=== PATIENT | female | born 1950 | race Caucasian/White ===

== ENCOUNTER 2018-01-07 12:09 | Inpatient (IN) | payer MEDICARE ==
[2018-01-07] MEDS ORDERED: Ondansetron 4 MG Tab.DIS PO PRN (13:02)
[2018-01-07] MEDS ORDERED: Polyethylene Glycol 3350 Powder 17 GM Packet PO PRN (13:02)
[2018-01-07] MEDS ORDERED: Ondansetron 4 MG/2 ML SDV IV PRN (13:02)
[2018-01-07] MEDS ORDERED: Sodium Chloride 0.9% 10 ML Syringe FLUSH PRN (13:02)
--- NOTE | 2018-01-07 13:09 | PCM.HP ---
H&P History of Present Illness - General Date of Service: 01/07/18 Admit Problem/Dx: Admission Diagnosis/Problem Admission Diagnosis/Problem Hip fracture requiring operative repair Source of Information: Patient, Provider History Limitations: Reports: No Limitations - History of Present Illness Initial Comments - Free Text/Narative: Saba presented initially to the clinic with right hip pain. She had a fall 2 nights ago and landed on her right hip. She had immediate and severe pain but was able to tough it out for a couple of days. She reports mild to moderate achy pain at rest but has sharp severe pain in the right hip with any weightbearing activity. She has taken hydrocodone at home with some improvement. She has never had pain like this before. Pain is not getting any better. She was initially seen in the clinic and an x-ray confirmed a right hip fracture. The case was discussed with orthopedics and direct admission plan for surgical intervention tomorrow. She has been feeling well prior to the fall which resulted from her losing her balance. She does not endorse fevers, chills , cough, shortness of breath, abdominal pain or nausea. She has had previous surgeries and has not had difficulty with anesthesia but did have a pulmonary embolism postoperatively years ago. Functional status is limited by sciatic and lower back pain. On a good day she is able to walk several blocks without limitation but when her pain in her lower back bothers her she's only able to walk a block or 2. She has not had recent difficulties with exertional dyspnea or chest pain. Right Groin Pain Score (Numeric/FACES): 8 - Related Data Allergies/Adverse Reactions: Allergies Allergy/AdvReac Type Severity Reaction Status Date / Time Iodinated Contrast- Oral and Allergy Severe Difficulty Verified 01/07/18 12:32 IV Dye Breathing [Iodinated Contrast Media - IV Dye] latex Allergy Cannot Verified 07/31/13 14:59 Remember tramadol AdvReac Confusion Verified 01/07/18 12:42 Home Medications: Home Meds ALPRAZolam [Xanax] 0.25 mg PO TID 01/07/18 [History] Acetaminophen/HYDROcodone [[place] 325-5 MG] 1 tab PO Q6H 01/07/18 [History] Albuterol Sulfate [Proair Hfa] 2 inhalation IH Q4H PRN 01/07/18 [History] Aspirin [Halfprin] 81 mg PO DAILY 01/07/18 [History] Carisoprodol [Soma] 350 mg PO QID 01/07/18 [History] FLUoxetine HCl [Prozac] 40 mg PO DAILY 01/07/18 [History] Furosemide [Lasix] 40 mg PO ASDIRECTED 01/07/18 [History] Metoprolol Succinate [Toprol XL] 25 mg PO DAILY 01/07/18 [History] Zolpidem Tartrate [Ambien] 10 mg PO BEDTIME 01/07/18 [History] predniSONE [Prednisone] 5 mg PO DAILY 01/07/18 [History] Past Medical History Cardiovascular History: Reports: Afib, Blood Clots/VTE/DVT, Other (See Below) Other Cardiovascular History: mitral valve prolapse Respiratory History: Reports: Asthma, PE, Sleep Apnea Other Respiratory History: PE 2007 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: Musculoskeletal History: Reports: Back Pain, Chronic, Fracture, RA Psychiatric History: Reports: Anxiety, Depression Endocrine/Metabolic History: Reports: Hyperthyroidism - Past Surgical History HEENT Surgical History: Reports: Adenoidectomy, Tonsillectomy Other HEENT Surgeries/Procedures: lumps in throat; reading glasses GI Surgical History: Reports: Appendectomy, Cholecystectomy, Colon Female Surgical History: Reports: Hysterectomy, Oophorectomy Social & Family History - Family History Other Family History: No family history of adverse reaction to anesthesia - Tobacco Use Smoking Status *Q: Unknown Ever Smoked - Alcohol Use Alcohol Use History: No H&P Review of Systems - Review of Systems: Review Of Systems: See Below Free Text/Narrative: A complete 12 point review of systems was obtained. Pertinent positives and negatives are noted in the history of present illness. All other systems were reviewed and were negative except as noted. Exam - Exam Exam: See Below - Vital Signs Vital Signs: Last Vital Signs Temp 36.6 C 01/07/18 12:23 Pulse 77 01/07/18 12:23 Resp 16 01/07/18 12:23 BP 131/81 01/07/18 12:23 Pulse Ox 98 01/07/18 12:23 Weight: 92.85 kg - Exam Quality Assessment: No: Supplemental Oxygen General: Alert, Oriented, Cooperative. No: Mild Distress Neck: Supple. No: Lymphadenopathy Lungs: Clear to Auscultation, Normal Respiratory Effort Cardiovascular: Regular Rate, Regular Rhythm. No: Systolic Murmur GI/Abdominal Exam: Normal Bowel Sounds, Soft, Non-Tender, No Distention Extremities: No Pedal Edema, Other (Bruising right lateral thigh) Skin: Warm, Dry Neuro Extensive - Mental Status: Alert, Oriented x3, Nl Response to Commands Neuro Extensive - Motor, Sensory, Reflexes: CN II-XII Intact. No: Dysarthria, Abnormal Motor Psychiatric: Alert, Normal Affect - Patient Data Result Diagrams: 01/07/18 13:20 01/07/18 13:20 Imaging Impressions Last 24 hrs: Right hip x-ray - images personally reviewed - there is evidence for a right hip fracture with minimal displacement *Q Meaningful Use (ADM) - VTE *Q VTE Pharmacological Contraindications *Q: Patient Scheduled Surgery - VTE Risk Assess *Q Each Risk Factor Represents 1 Point: Obesity ( BMI > 25 kg/m2) Total Score 1 Point Risk Factors: 1 Each Risk Factor Represents 2 Points: Age 60 - 74 Years Total Score 2 Point Risk Factors: 2 Each Risk Factor Represents 3 Points: History of DVT/PE Total Score 3 Point Risk Factors: 3 Each Risk Factor Represents 5 Points: Hip, Pelvis or Leg Fracture, Less than 1 month Total Score 5 Point Risk Factors: 5 Venous Thromboembolism Risk Factor Score *Q: 11 - Problem List (1) Closed right hip fracture SNOMED Code(s): 355366738 ICD Code: S72.001A - FRACTURE OF UNSP PART OF NECK OF RIGHT FEMUR, INIT Status: Acute Current Visit: Yes Qualifiers: Encounter type: initial encounter Qualified Code(s): S72.001A - Fracture of unspecified part of neck of right femur, initial encounter for closed fracture (2) Rheumatoid arthritis SNOMED Code(s): 67888255 ICD Code: M06.9 - RHEUMATOID ARTHRITIS, UNSPECIFIED Status: Chronic Current Visit: Yes Qualifiers: Rheumatoid arthritis location: unspecified site Rheumatoid factor presence : without rheumatoid factor Qualified Code(s): M06.00 - Rheumatoid arthritis without rheumatoid factor, unspecified site (3) Depression with anxiety SNOMED Code(s): 96846157, 905576705 ICD Code: F41.8 - OTHER SPECIFIED ANXIETY DISORDERS Status: Chronic Current Visit: Yes Problem List Initiated/Reviewed/Updated: Yes Orders Last 24hrs: Active Orders 24 hr Category Date Time Status Patient Status [ADT] Routine ADT 01/07/18 13:03 Ordered Bedrest Bedside Commode [RC] ASDIRECTED Care 01/07/18 13:02 Ordered Intake and Output [RC] QSHIFT Care 01/07/18 13:04 Ordered Notify Provider Consults [RC] ASDIRECTED Care 01/07/18 13:06 Ordered Notify Provider Vital Signs [RC] ASDIRECTED Care 01/07/18 13:04 Ordered Oxygen Therapy [RC] PRN Care 01/07/18 13:03 Ordered RT Aerosol Therapy [RC] ASDIRECTED Care 01/07/18 13:06 Ordered Up With Assistance [RC] ASDIRECTED Care 01/07/18 13:02 Ordered VTE/DVT Education [RC] Per Unit Routine Care 01/07/18 13:03 Ordered Vital Signs [RC] Q4H Care 01/07/18 13:03 Ordered Consult to Physician [CONS] Routine Cons 01/07/18 13:02 Ordered PT Evaluation and Treatment [CONS] Routine Cons 01/08/18 13:02 Ordered Nothing per Oral After Midnight Diet [DIET] Diet 01/07/18 Dinner Ordered Regular Diet [DIET] Diet 01/07/18 Lunch Ordered BASIC METABOLIC PANEL,BMP [CHEM] AM Lab 01/08/18 05:11 Ordered BASIC METABOLIC PANEL,BMP [CHEM] Routine Lab 01/07/18 13:02 Ordered CBC W/O DIFF,HEMOGRAM [HEME] AM Lab 01/08/18 05:11 Ordered CBC WITH AUTO DIFF [HEME] Routine Lab 01/07/18 13:02 Ordered ALPRAZolam [Xanax] Med 01/07/18 13:00 Ordered 0.25 mg PO TID PRN Acetaminophen [Tylenol] Med 01/07/18 13:02 Ordered 650 mg PO Q4H PRN Albuterol [Proventil Neb Soln] Med 01/07/18 13:02 Ordered 2.5 mg NEB Q4H PRN Aspirin [Halfprin] Med 01/08/18 09:00 Ordered 81 mg PO DAILY Carisoprodol [Soma] Med 01/07/18 16:00 Ordered 350 mg PO QID Docusate Sodium/Sennosides [Senna Plus] Med 01/07/18 13:02 Ordered 1 tab PO BID PRN FLUoxetine [PROzac] Med 01/08/18 09:00 Ordered 40 mg PO DAILY HYDROmorphone [Dilaudid] Med 01/07/18 12:26 Active 0.5 mg IVPUSH Q2H PRN Ibuprofen [Motrin] Med 01/07/18 13:02 Ordered 600 mg PO Q6H PRN Metoprolol Succinate [Toprol XL] Med 01/08/18 09:00 Ordered 25 mg PO DAILY Ondansetron [Zofran ODT] Med 01/07/18 13:02 Ordered 4 mg PO Q6H PRN Ondansetron [Zofran] Med 01/07/18 13:02 Ordered 4 mg IV Q6H PRN Polyethylene Glycol 3350 [MiraLAX] Med 01/07/18 13:02 Ordered 17 gm PO DAILY PRN Sodium Chloride 0.9% [Saline Flush] Med 01/07/18 13:02 Ordered 10 ml FLUSH ASDIRECTED PRN Zolpidem Tartrate [Ambien] Med 01/07/18 21:00 Ordered 10 mg PO BEDTIME oxyCODONE Med 01/07/18 12:26 Active 5 - 10 mg PO Q4H PRN predniSONE Med 01/08/18 09:00 Ordered 5 mg PO DAILY Saline Lock Insert [OM.PC] Routine Oth 01/07/18 13:02 Ordered Sequential Compression Device [OM.PC] Per Unit Routine Oth 01/07/18 13:04 Ordered VTE Pharmacological Contraindications [AST] Per Unit Oth 01/07/18 13:02 Ordered Routine Resuscitation Status Routine Resus Stat 01/07/18 13:02 Ordered Medication Orders Hydromorphone HCl (Dilaudid) 0.5 mg IVPUSH Q2H PRN PRN Reason: Pain (severe 7-10) Oxycodone HCl (Oxycodone) 5 - 10 mg PO Q4H PRN PRN Reason: Pain Assessment/Plan Comment:: ASSESSMENT AND PLAN - Closed fracture of the right hip - fracture secondary to fall from a height after losing her balance. Surgical intervention is planned for tomorrow morning. I believe she is in optimal achievable medical condition. Functional status acceptable and limited mostly by lower back pain. No active cardiopulmonary symptoms. She does have a history of postoperative pulmonary embolism and will need DVT prophylaxis initiated as soon as safe from a surgical standpoint. -Nothing by mouth after midnight -Pain control -Surgical consultation for surgery tomorrow -Physical therapy tomorrow Rheumatoid arthritis - chronic and stable at this time. -Pain control -Continue low-dose prednisone Recent pneumonia - antibiotics were completed more than a month ago but patient still occasionally uses her inhaler. Planning repeat chest x-ray to ensure resolution. Maintenance issues - - DVT prophylaxis - mechanical until after surgery - GI prophylaxis - not indicated - Nutrition - regular diet today, nothing by mouth after midnight - Gipson catheter - will be placed for comfort and to monitor intake and output after surgery CODE STATUS - full code Admission justification - This patient will be admitted for inpatient services and is medically appropriate meeting medical necessity for inpatient admission as outlined in my documentation. I reasonably expect the patient will require inpatient services that span a period time over 2 midnights. I reasonably expect this patient to be discharged or transferred within 96 hours [facility]. Disposition - I would anticipate discharge to home after the hospital stay Primary care physician - Dr Chano Dominguez M.D.
[2018-01-07] MEDS: oxyCODONE 5 MG Tab PO PRN ×3 (13:31→22:23)
--- NOTE | 2018-01-07 15:27 | PCM.CONS ---
H&P History of Present Illness - General Date of Service: 01/07/18 Admit Problem/Dx: Admission Diagnosis/Problem Admission Diagnosis/Problem Hip fracture requiring operative repair Source of Information: Patient History Limitations: Reports: No Limitations - History of Present Illness Onset of Symptoms: Reports: Sudden Duration of Symptoms: Reports: Day(s): Location: Reports: Lower Extremity, Right Quality: Reports: Sharp, Stabbing, Throbbing Severity: Moderate Improves with: Reports: Immobilization Worsens with: Reports: Movement Associated Symptoms: Reports: No Other Symptoms Right Groin Pain Score (Numeric/FACES): 8 - Related Data Allergies/Adverse Reactions: Allergies Allergy/AdvReac Type Severity Reaction Status Date / Time Iodinated Contrast- Oral and Allergy Severe Difficulty Verified 01/07/18 12:32 IV Dye Breathing [Iodinated Contrast Media - IV Dye] latex Allergy Cannot Verified 07/31/13 14:59 Remember tramadol AdvReac Confusion Verified 01/07/18 12:42 Home Medications: Home Meds ALPRAZolam [Xanax] 0.25 mg PO TID 01/07/18 [History] Acetaminophen/HYDROcodone [[place] 325-5 MG] 1 tab PO Q6H 01/07/18 [History] Albuterol Sulfate [Proair Hfa] 2 inhalation IH Q4H PRN 01/07/18 [History] Aspirin [Halfprin] 81 mg PO DAILY 01/07/18 [History] Carisoprodol [Soma] 350 mg PO QID 01/07/18 [History] FLUoxetine HCl [Prozac] 40 mg PO DAILY 01/07/18 [History] Furosemide [Lasix] 40 mg PO ASDIRECTED 01/07/18 [History] Metoprolol Succinate [Toprol XL] 25 mg PO DAILY 01/07/18 [History] Zolpidem Tartrate [Ambien] 10 mg PO BEDTIME 01/07/18 [History] predniSONE [Prednisone] 5 mg PO DAILY 01/07/18 [History] Past Medical History Cardiovascular History: Reports: Afib, Blood Clots/VTE/DVT, Other (See Below) Other Cardiovascular History: mitral valve prolapse Respiratory History: Reports: Asthma, PE, Sleep Apnea Other Respiratory History: PE 2007 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: Musculoskeletal History: Reports: Back Pain, Chronic, Fracture, RA Psychiatric History: Reports: Anxiety, Depression Endocrine/Metabolic History: Reports: Hyperthyroidism - Past Surgical History HEENT Surgical History: Reports: Adenoidectomy, Tonsillectomy Other HEENT Surgeries/Procedures: lumps in throat; reading glasses GI Surgical History: Reports: Appendectomy, Cholecystectomy, Colon Female Surgical History: Reports: Hysterectomy, Oophorectomy Social & Family History - Family History Other Family History: No family history of adverse reaction to anesthesia - Tobacco Use Smoking Status *Q: Unknown Ever Smoked Years of Tobacco use: 20 Used Tobacco, but Quit: Yes Month/Year Tobacco Last Used: unknown - Caffeine Use Caffeine Use: Reports: Coffee H&P Review of Systems - Review of Systems: Review Of Systems: See Below General: Reports: No Symptoms HEENT: Reports: No Symptoms Pulmonary: Reports: No Symptoms Cardiovascular: Reports: No Symptoms Gastrointestinal: Reports: No Symptoms Genitourinary: Reports: No Symptoms Musculoskeletal: Reports: Leg Pain, Joint Pain Skin: Reports: No Symptoms Psychiatric: Reports: No Symptoms Neurological: Reports: No Symptoms Hematologic/Lymphatic: Reports: No Symptoms Immunologic: Reports: No Symptoms Exam - Exam Exam: See Below - Vital Signs Vital Signs: Last Vital Signs Temp 97.9 F 01/07/18 12:23 Pulse 77 01/07/18 12:23 Resp 16 01/07/18 12:23 BP 131/81 01/07/18 12:23 Pulse Ox 98 01/07/18 12:23 Weight: 204 lb 11.2 oz - Exam General: Alert, Oriented HEENT: Conjunctiva Clear, Hearing Intact, Mucosa Moist & [place], Pupils Equal, Pupils Reactive Neck: Supple, Trachea Midline Lungs: Clear to Auscultation, Normal Respiratory Effort Extremities: Joint Swelling, Leg Pain, Limited Range of Motion Peripheral Pulses: 2+: Dorsalis Pedis (R) Skin: Warm, Dry, Intact, Ecchymosis Neuro Extensive - Mental Status: Alert, Oriented x3, Normal Mood/Affect, Normal Cognition, Memory Intact Psychiatric: Alert, Normal Affect, Normal Mood - Patient Data Lab Results Last 24 hrs: Laboratory Results - last 24 hr 01/07/18 01/07/18 01/07/18 Range/Units 13:16 13:20 13:20 WBC 7.6 (4.5-11.0) K/uL RBC 3.58 (3.30-5.50) M/uL Hgb 11.9 L (12.0-15.0) g/dL Hct 36.6 (36.0-48.0) % MCV 102 H (80-98) fL MCH 33 H (27-31) pg MCHC 33 (32-36) % Plt Count 210 (150-400) K/uL Neut % (Auto) 78 H (36-66) % Lymph % (Auto) 8 L (24-44) % [place] % (Auto) 7 H (2-6) % Eos % (Auto) 6 H (2-4) % Baso % (Auto) 1 (0-1) % Sodium 138 L (140-148) mmol/L Potassium 4.4 (3.6-5.2) mmol/L Chloride 103 (100-108) mmol/L Carbon Dioxide 27 (21-32) mmol/L Anion Gap 12.4 (5.0-14.0) mmol/L BUN 11 (7-18) mg/dL Creatinine 0.8 (0.6-1.0) mg/dL Est Cr Clr Drug Dosing 70.72 mL/min Estimated GFR (MDRD) > 60 (>60) Glucose 109 H (74-106) mg/dL Calcium 8.6 (8.5-10.1) mg/dL Blood Type A NEGATIVE Gel Antibody Screen Negative Result Diagrams: 01/07/18 13:20 01/07/18 13:20 Consult PN Assessment/Plan POD#: 0 Procedures: Procedures ASSAY OF CREATININE (08/01/13) CT ABD & PELVIS W/O CONTRAST (08/01/13) ROUTINE VENIPUNCTURE (08/01/13) Problem List Initiated/Reviewed/Updated: Yes My Orders Last 24 Hours: My Active Orders 01/07/18 13:16 PATIENT RETYPE [BBK] Routine TYPE AND SCREEN [BBK] Routine 01/07/18 Dinner NPO After Midnight [Nothing per Oral After Midnight Diet] [DIET] Plan: I the pleasure visiting with the patient today in her hospital room. I spoke with her physician, Dr. Madden earlier. Over the weekend her daughter was . She fell backwards tripping to avoid cinderblocks. She fell about 6 feet landing directly on her right hip. She had increased pain in the right hip. When she saw Dr. Madden today he did obtain radiographs which showed a subcapital femoral neck fracture. I then asked for him to admit her to the hospitalist service and will plan on doing a hemiarthroplasty tomorrow. Risks and benefits of the procedure were explained to the patient and informed consent was obtained. I did explain the hospital and postoperative course to her. All questions were answered. Will plan on performing the procedure tomorrow at 8 AM.
[2018-01-07] MEDS: Zolpidem 5 MG Tab PO SCH (22:23)
[2018-01-08] MEDS: ALPRAZolam 0.25 MG Tab PO PRN (02:34)
[2018-01-08] MEDS: oxyCODONE 5 MG Tab PO PRN ×4 (04:39→22:50)
[2018-01-08] MEDS ORDERED: Povidone-Iodine 10% Soln 118.25 ML Bottle ONE (06:41)
[2018-01-08] MEDS ORDERED: Lactated Ringers 1,000 ML IV SCH ×2 (07:00→12:00)
[2018-01-08] MEDS ORDERED: Bupivacaine 0.5%/EPINEPHrine 1:200,000 50 ML MDV ONE (07:18)
[2018-01-08] MEDS: Metoprolol Succinate 25 MG Tab.ER PO SCH ×2 (07:21→12:19)
[2018-01-08] MEDS ORDERED: ceFAZolin 2 GM in Premix Bag 1 BAG IV ONE (07:30)
[2018-01-08] MEDS: Gentamicin 40 MG/ML 2 ML Vial ONE ×2 (08:03→09:32)
[2018-01-08] MEDS ORDERED: Bupivacaine 0.75%/D5W 2 ML Amp ONE (08:31)
[2018-01-08] MEDS ORDERED: Midazolam 1 MG/ML 2 ML SDV ONE (08:31)
[2018-01-08] MEDS ORDERED: fentaNYL 100 MCG/2 ML SDV ONE (08:31)
[2018-01-08] MEDS ORDERED: Propofol 200 MG/20 ML SDV ONE ×3 (08:31→09:50)
--- NOTE | 2018-01-08 08:35 | CR ---
CHEST: Portable CLINICAL HISTORY:Recent pneumonia COMPARISON:2009 FINDINGS: Heart size and pulmonary vascularity are normal. There are atherosclerotic changes in the aorta.. No infiltrate effusion or pneumothorax is seen. IMPRESSION: No acute cardiopulmonary process
[2018-01-08] MEDS ORDERED: Ropivacaine 49.25 ML, Ketorolac 30 MG, EPINEPHrine 0.5 MG, cloNIDine 80 MCG, Sodium Chl... INJECT ONE ×5 (09:00)
[2018-01-08] MEDS ORDERED: Hydrocortisone Sodium Succinate 100 MG/2 ML SDV ONE (09:14)
[2018-01-08] MEDS ORDERED: Phenylephrine 1% 10 MG/ML SDV ONE (09:44)
[2018-01-08] MEDS ORDERED: Lactated Ringers 1,000 ML ONE (10:00)
--- NOTE | 2018-01-08 11:23 | OR ---
DATE OF PROCEDURE: 01/08/2018 PREOPERATIVE DIAGNOSIS: Right femoral neck fracture, closed. POSTOPERATIVE DIAGNOSIS: Right femoral neck fracture, closed. PROCEDURE: Right hip hemiarthroplasty. ANESTHESIA: Spinal plus conscious sedation. FLUID: Lactated Ringer's solution. ESTIMATED BLOOD LOSS: 100 mL. COMPLICATIONS: None. SPECIMEN: None. DISCHARGE DISPOSITION: Stable to PACU. INSTRUMENTATION: Femur size 7 [place] from [employer] 28 inside diameter, 47 outside diameter bipolar arthroplasty with +5 neck standard offset. HISTORY AND INDICATIONS FOR THE PROCEDURE: The patient fell at a wedding over the weekend. She was seen by Dr. Madden and then I was called. She was admitted to the hospitalist service. Risks and benefits of the procedure were explained to the patient. Informed consent was obtained. Preoperative imaging confirmed the above-mentioned diagnosis. DETAILS OF PROCEDURE: The patient was seen preoperatively by myself and the Anesthesia staff in the hospital room. She was brought to the operative suite by the Anesthesia staff, where spinal sedation plus conscious sedation was administered. She was placed into a left lateral recumbent position on a pegboard. All extremities were found to be well padded. An axillary roll was placed. The right lower extremity was then prepped and draped in a sterile manner. Time-out was called identifying the correct patient, correct procedure, the correct site, and antibiotics had begun within appropriate period of time. I then made an incision approximately 7 cm proximal to the greater trochanter and 7 cm distal to the level of lesser trochanter and down through the subcutaneous fascia to the iliotibial band. Bleeding was controlled during the case with Bovie electrocautery. Two Gelpi's were used for initial retraction. I then went through the IT band and used a Charnley retractor. I then went through the gluteus minimus, and gluteus medius leaving a small cuff reattachment as well as going through the anterior capsule. I then made a longitudinal incision along the femoral neck and head over the edge of the acetabulum. I did use a Davison to spread the capsule out for visualization. Bleeding again was controlled with Bovie electrocautery. I then made 2 saw cuts and then used a corkscrew to remove the femoral head. This measured between 47 and 48, so we chose to use 47 head. I then externally rotated the femur including soft tissue over the greater trochanter and then used a box inspector to remove bone along the superior edge near the greater trochanter. I then used a canal finer, then a lateralizing reamer followed by sequential reamers from #1 up to a #6, 7. We then irrigated again and then used broaches from a 4 to 6; 7 was too big. I then placed a 6 then tried first with a +1.5 neck with a 47 head. This provided good stability, but I thought it was just a little bit lax, so we placed a +5 head. This was standard +5 neck. This was a standard offset. This provided good stability throughout range of motion with no shuck and equal leg lengths at the patella as well as the heel. We then copiously irrigated with saline. After removing our trial instruments and then inserted our final implants, reduced hip. This provided good range of motion. I did do 2 separate layers for my capsular and gluteus closures, closing the capsule first and then closing the gluteus at the cuff. This was very good closure. We then irrigated again and this was closed with #5 Ethibond. We then closed the IT band with #1 STRATAFIX followed by irrigation, followed by #2 STRATAFIX, followed by skin timothy and a sterile dressing. The patient was then transferred to hospital bed and taken to the PACU in stable condition. Johann Mao DO /[id number]
--- NOTE | 2018-01-08 11:29 | CR ---
Hip Min 1V w Pelvis Rt CLINICAL HISTORY: Right hip arthroplasty FINDINGS: Patient has right hip arthroplasty. Components appear well seated. There is some acetabular spurring bilaterally. Impression: Status post right hip arthroplasty
--- NOTE | 2018-01-08 11:53 | PCM.PN ---
- General Info Date of Service: 01/08/18 Functional Status: Reports: Pain Controlled - Review of Systems General: Denies: Fever Musculoskeletal: Denies: Joint Pain Systems Review Comment:: There were no acute events overnight. Patient had surgery this morning receiving a right hip hemiarthroplasty. There are no acute difficulties during surgery. Postoperatively she is not having any pain. She is alert and interactive. No complaints of shortness of breath. - Patient Data Vitals - Most Recent: Last Vital Signs Temp 36.1 C 01/08/18 11:15 Pulse 81 01/08/18 11:15 Resp 14 01/08/18 11:15 BP 124/60 01/08/18 11:15 Pulse Ox 100 01/08/18 11:15 Weight - Most Recent: 92.85 kg I&O - Last 24 Hours: Intake & Output 01/07/18 01/08/18 01/08/18 22:59 06:59 14:59 Intake Total 300 75 Output Total 600 150 425 Balance -300 -150 -350 Lab Results Last 24 Hours: Laboratory Results - last 24 hr 01/07/18 01/07/18 01/07/18 Range/Units 13:16 13:20 13:20 WBC 7.6 (4.5-11.0) K/uL RBC 3.58 (3.30-5.50) M/uL Hgb 11.9 L (12.0-15.0) g/dL Hct 36.6 (36.0-48.0) % MCV 102 H (80-98) fL MCH 33 H (27-31) pg MCHC 33 (32-36) % Plt Count 210 (150-400) K/uL Neut % (Auto) 78 H (36-66) % Lymph % (Auto) 8 L (24-44) % [place] % (Auto) 7 H (2-6) % Eos % (Auto) 6 H (2-4) % Baso % (Auto) 1 (0-1) % Sodium 138 L (140-148) mmol/L Potassium 4.4 (3.6-5.2) mmol/L Chloride 103 (100-108) mmol/L Carbon Dioxide 27 (21-32) mmol/L Anion Gap 12.4 (5.0-14.0) mmol/L BUN 11 (7-18) mg/dL Creatinine 0.8 (0.6-1.0) mg/dL Est Cr Clr Drug Dosing 70.72 mL/min Estimated GFR (MDRD) > 60 (>60) Glucose 109 H (74-106) mg/dL Calcium 8.6 (8.5-10.1) mg/dL Blood Type A NEGATIVE Gel Antibody Screen Negative 01/08/18 01/08/18 Range/Units 05:11 05:11 WBC 8.4 (4.5-11.0) K/uL RBC 3.55 (3.30-5.50) M/uL Hgb 11.6 L (12.0-15.0) g/dL Hct 36.6 (36.0-48.0) % MCV 103 H (80-98) fL MCH 33 H (27-31) pg MCHC 32 (32-36) % Plt Count 212 (150-400) K/uL Neut % (Auto) (36-66) % Lymph % (Auto) (24-44) % [place] % (Auto) (2-6) % Eos % (Auto) (2-4) % Baso % (Auto) (0-1) % Sodium 139 L (140-148) mmol/L Potassium 3.6 (3.6-5.2) mmol/L Chloride 104 (100-108) mmol/L Carbon Dioxide 26 (21-32) mmol/L Anion Gap 12.6 (5.0-14.0) mmol/L BUN 8 (7-18) mg/dL Creatinine 0.8 (0.6-1.0) mg/dL Est Cr Clr Drug Dosing 70.72 mL/min Estimated GFR (MDRD) > 60 (>60) Glucose 105 (74-106) mg/dL Calcium 8.5 (8.5-10.1) mg/dL Blood Type Gel Antibody Screen Med Orders - Current: Current Medications Acetaminophen (Tylenol) 650 mg PO Q4H PRN PRN Reason: Pain (Mild 1-3)/fever Albuterol (Proventil Neb Soln) 2.5 mg NEB Q4H PRN PRN Reason: Shortness Of Breath/wheezing Alprazolam (Xanax) 0.25 mg PO TID PRN PRN Reason: Anxiety Last Admin: 01/08/18 02:34 Dose: 0.25 mg Aspirin (Halfprin) 81 mg PO DAILY [facility] Carisoprodol (Soma) 350 mg PO QID [facility] Last Admin: 01/08/18 06:12 Dose: Not Given Fluoxetine HCl (Prozac) 40 mg PO DAILY [facility] Hydromorphone HCl (Dilaudid) 0.5 mg IVPUSH Q2H PRN PRN Reason: Pain (severe 7-10) Cefazolin Sodium/Dextrose 2 gm (/ Premix) 50 mls @ 100 mls/hr IV Q8H [facility] Stop: 01/09/18 09:29 Lactated Ringer's (Ringers, Lactated) 1,000 mls @ 25 mls/hr IV ASDIRECTED [facility] Ibuprofen (Motrin) 600 mg PO Q6H PRN PRN Reason: Pain/Fever Metoprolol Succinate (Toprol Xl) 25 mg PO DAILY [facility] Last Admin: 01/08/18 07:21 Dose: 25 mg Ondansetron HCl (Zofran Odt) 4 mg PO Q6H PRN PRN Reason: Nausea able to take PO Ondansetron HCl (Zofran) 4 mg IV Q6H PRN PRN Reason: Nausea/Vomiting Oxycodone HCl (Oxycodone) 5 - 10 mg PO Q4H PRN PRN Reason: Pain Last Admin: 01/08/18 04:39 Dose: 10 mg Polyethylene Glycol (Miralax) 17 gm PO DAILY PRN PRN Reason: Constipation Prednisone (Prednisone) 5 mg PO DAILY [facility] Senna/Docusate Sodium (Senna Plus) 1 tab PO BID PRN PRN Reason: Constipation Sodium Chloride (Saline Flush) 10 ml FLUSH ASDIRECTED PRN PRN Reason: Keep Vein Open Zolpidem Tartrate (Ambien) 10 mg PO BEDTIME [facility] Last Admin: 01/07/18 22:23 Dose: 10 mg Discontinued Medications Bupivacaine HCl/Dextrose (Marcaine 0.75% Spinal) Confirm Administered Dose 2 ml .ROUTE .STK-MED ONE Stop: 01/08/18 08:32 Bupivacaine HCl/Epinephrine Bitart (Marcaine 0.5%/Epinephrine 1:200,000) Confirm Administered Dose 50 ml .ROUTE .STK-MED ONE Stop: 01/08/18 07:19 Ropivacaine 49.25 ml/Ketorolac Tromethamine 30 mg/Epinephrine HCl 0.5 mg/ Clonidine HCl 80 mcg/ Sodium Chloride 48.45 ml 0 ml INJECT ONETIME ONE Stop: 01/08/18 09:01 Last Admin: 01/08/18 10:19 Dose: 100 ml Fentanyl (Sublimaze) Confirm Administered Dose 100 mcg .ROUTE .STK-MED ONE Stop: 01/08/18 08:32 Gentamicin Sulfate (Gentamicin) Confirm Administered Dose 240 mg .ROUTE .STK- MED ONE Stop: 01/08/18 06:42 Last Admin: 01/08/18 09:32 Dose: 240 mg Hydrocortisone Sodium Succinate (Solu-Cortef) Confirm Administered Dose 100 mg .ROUTE .STK-MED ONE Stop: 01/08/18 09:15 Lactated Ringer's (Ringers, Lactated) 1,000 mls @ 100 mls/hr IV ASDIRECTED [facility] Last Admin: 01/08/18 06:07 Dose: 100 mls/hr Cefazolin Sodium/Dextrose 2 gm (/ Premix) 50 mls @ 100 mls/hr IV ONCALL ONE Stop: 01/08/18 07:59 Last Admin: 01/08/18 08:48 Dose: 100 mls/hr Lactated Ringer's (Ringers, Lactated) Confirm Administered Dose 1,000 mls @ as directed .ROUTE .STK-MED ONE Stop: 01/08/18 10:01 Midazolam HCl (Versed 1 Mg/Ml) Confirm Administered Dose 2 mg .ROUTE .STK-MED ONE Stop: 01/08/18 08:32 Phenylephrine HCl (Donovan-Synephrine) Confirm Administered Dose 10 mg .ROUTE .STK- MED ONE Stop: 01/08/18 09:45 Povidone Iodine (Betadine 10% Soln) Confirm Administered Dose 1 ml .ROUTE .STK- MED ONE Stop: 01/08/18 06:42 Propofol (Diprivan 20 Ml) Confirm Administered Dose 200 mg .ROUTE .STK-MED ONE Stop: 01/08/18 08:32 Propofol (Diprivan 20 Ml) Confirm Administered Dose 200 mg .ROUTE .STK-MED ONE Stop: 01/08/18 09:45 Propofol (Diprivan 20 Ml) Confirm Administered Dose 200 mg .ROUTE .STK-MED ONE Stop: 01/08/18 09:51 - Exam Quality Assessment: No: Supplemental Oxygen General: Alert, Oriented, Cooperative, No Acute Distress Neck: Supple Lungs: Normal Respiratory Effort GI/Abdominal Exam: Soft, No Distention Extremities: No Pedal Edema Psy/Mental Status: Alert, Normal Affect - Problem List & Annotations (1) Closed right hip fracture SNOMED Code(s): 981450759 Code(s): S72.001A - FRACTURE OF UNSP PART OF NECK OF RIGHT FEMUR, INIT Status: Acute Current Visit: Yes Qualifiers: Encounter type: initial encounter Qualified Code(s): S72.001A - Fracture of unspecified part of neck of right femur, initial encounter for closed fracture (2) Rheumatoid arthritis SNOMED Code(s): 30297795 Code(s): M06.9 - RHEUMATOID ARTHRITIS, UNSPECIFIED Status: Chronic Current Visit: Yes Qualifiers: Rheumatoid arthritis location: unspecified site Rheumatoid factor presence : without rheumatoid factor Qualified Code(s): M06.00 - Rheumatoid arthritis without rheumatoid factor, unspecified site (3) Depression with anxiety SNOMED Code(s): 61641180, 065579576 Code(s): F41.8 - OTHER SPECIFIED ANXIETY DISORDERS Status: Chronic Current Visit: Yes - Problem List Review Problem List Initiated/Reviewed/Updated: Yes - My Orders Last 24 Hours: My Active Orders 01/07/18 12:26 HYDROmorphone [Dilaudid] 0.5 mg IVPUSH Q2H PRN oxyCODONE 5 - 10 mg PO Q4H PRN 01/07/18 13:00 ALPRAZolam [Xanax] 0.25 mg PO TID PRN 01/07/18 13:02 Bedrest Bedside Commode [RC] ASDIRECTED Up With Assistance [RC] ASDIRECTED Consult to Physician [CONS] Routine Acetaminophen [Tylenol] 650 mg PO Q4H PRN Albuterol [Proventil Neb Soln] 2.5 mg NEB Q4H PRN Docusate Sodium/Sennosides [Senna Plus] 1 tab PO BID PRN Ibuprofen [Motrin] 600 mg PO Q6H PRN Ondansetron [Zofran ODT] 4 mg PO Q6H PRN Ondansetron [Zofran] 4 mg IV Q6H PRN Polyethylene Glycol 3350 [MiraLAX] 17 gm PO DAILY PRN Sodium Chloride 0.9% [Saline Flush] 10 ml FLUSH ASDIRECTED PRN Saline Lock Insert [OM.PC] Routine VTE Pharmacological Contraindications [AST] Per Unit Routine Resuscitation Status Routine 01/07/18 13:03 Patient Status [ADT] Routine Oxygen Therapy [RC] PRN VTE/DVT Education [RC] Per Unit Routine Vital Signs [RC] Q4H 01/07/18 13:04 Intake and Output [RC] QSHIFT Notify Provider Vital Signs [RC] ASDIRECTED Sequential Compression Device [OM.PC] Per Unit Routine 01/07/18 13:06 Notify Provider Consults [RC] ASDIRECTED RT Aerosol Therapy [RC] ASDIRECTED 01/07/18 15:10 Urinary Catheter Assessment [RC] ASDIRECTED 01/07/18 16:00 Carisoprodol [Soma] 350 mg PO QID 01/07/18 21:00 Zolpidem [Ambien] 10 mg PO BEDTIME 01/08/18 09:00 Aspirin [Halfprin] 81 mg PO DAILY FLUoxetine [PROzac] 40 mg PO DAILY Metoprolol Succinate [Toprol XL] 25 mg PO DAILY predniSONE 5 mg PO DAILY 01/08/18 12:00 Lactated Ringers [Ringers, Lactated] 1,000 ml IV ASDIRECTED 01/08/18 13:02 PT Evaluation and Treatment [CONS] Routine 01/08/18 15:15 Insert Gipson Catheter [Insert Urinary Catheter] [OM.PC] Q24H 01/09/18 05:00 BASIC METABOLIC PANEL,BMP [CHEM] Timed CBC W/O DIFF,HEMOGRAM [HEME] Timed (1) - Plan Plan:: ASSESSMENT AND PLAN - Closed fracture of the right hip - fracture secondary to fall from a height after losing her balance. She is now status post right hip hemiarthroplasty. Pain well-controlled and vitals are stable. -Pain control -Physical therapy tomorrow Rheumatoid arthritis - chronic and stable at this time. -Pain control -Continue low-dose prednisone Recent pneumonia - chest x-ray clear and respiratory status stable. Maintenance issues - - DVT prophylaxis - mechanical until after surgery - GI prophylaxis - not indicated - Nutrition - regular diet today, nothing by mouth after midnight - Gipson catheter - will be placed for comfort and to monitor intake and output after surgery, plan to remove in the morning if stable overnight. Disposition - I would anticipate discharge to home after the hospital stay Evangelista Dominguez M.D.
[2018-01-08] MEDS: Aspirin 81 MG Tab.EC PO SCH (12:58)
[2018-01-08] MEDS: predniSONE 5 MG Tab PO SCH (12:58)
[2018-01-08] MEDS: FLUoxetine 20 MG Cap PO SCH (12:58)
[2018-01-08] MEDS: Acetaminophen 325 MG Tab PO PRN ×2 (17:44→22:50)
[2018-01-08] MEDS: ceFAZolin 2 GM in Premix Bag 1 BAG IV SCH (17:46)
[2018-01-08] MEDS: HYDROmorphone 0.5 MG/0.5 ML Syringe IVPUSH PRN (19:19)
[2018-01-08] MEDS ORDERED: Lactated Ringers 500 ML IV SCH (21:30)
[2018-01-08] MEDS: Zolpidem 5 MG Tab PO SCH (21:38)
[2018-01-08] MEDS: Ibuprofen 600 MG Tab PO PRN (21:39)
[2018-01-08] MEDS: Lactated Ringers 1,000 ML IV SCH (22:30)
[2018-01-09] MEDS: ceFAZolin 2 GM in Premix Bag 1 BAG IV SCH ×2 (01:10→08:05)
[2018-01-09] MEDS ORDERED: Lactated Ringers 500 ML IV SCH (01:30)
[2018-01-09] MEDS: Lactated Ringers 1,000 ML IV SCH ×2 (02:33→02:43)
[2018-01-09] MEDS: Acetaminophen 325 MG Tab PO PRN ×4 (02:41→18:07)
[2018-01-09] MEDS: oxyCODONE 5 MG Tab PO PRN ×5 (02:42→20:04)
[2018-01-09] MEDS: Albuterol 0.083% 2.5 MG/3 ML Neb Soln NEB PRN ×2 (02:45→17:03)
[2018-01-09] MEDS: Ibuprofen 600 MG Tab PO PRN ×3 (04:29→19:52)
[2018-01-09] MEDS: HYDROmorphone 0.5 MG/0.5 ML Syringe IVPUSH PRN (08:02)
[2018-01-09] MEDS: predniSONE 5 MG Tab PO SCH (09:24)
[2018-01-09] MEDS: FLUoxetine 20 MG Cap PO SCH (09:25)
[2018-01-09] MEDS: Metoprolol Succinate 25 MG Tab.ER PO SCH (09:25)
[2018-01-09] MEDS: Aspirin 81 MG Tab.EC PO SCH (09:25)
--- NOTE | 2018-01-09 10:11 | PCM.PN ---
- General Info Date of Service: 01/09/18 Functional Status: Reports: Pain Controlled, Tolerating Diet - Review of Systems General: Denies: Fever Pulmonary: Reports: Shortness of Breath Systems Review Comment:: Overnight the patient had some difficulty with decreased urine output and received 2 fluid boluses. She also had an episode of anxiety when she woke up tangled and blankets. Anxiety was able to be calmed utilizing improved pain control. Urine output has remained on the low side throughout the night but she starting to develop some edema sunken hold off on additional fluid. She does not feel short of breath or anxious this morning. In general her hip is feeling pretty good with minimal pain but she does have some sharp pains in the area of the incision. She has not had any fevers. She does not require supplemental oxygen. - Patient Data Vitals - Most Recent: Last Vital Signs Temp 35.9 C 01/09/18 08:17 Pulse 84 01/09/18 09:25 Resp 16 01/09/18 08:17 BP 122/71 01/09/18 09:25 Pulse Ox 95 01/09/18 08:17 Weight - Most Recent: 92.85 kg I&O - Last 24 Hours: Intake & Output 01/08/18 01/09/18 01/09/18 22:59 06:59 14:59 Intake Total 2142 1212 Output Total 726 124 150 Balance 1416 1088 -150 Lab Results Last 24 Hours: Laboratory Results - last 24 hr 01/09/18 01/09/18 Range/Units 04:25 04:25 WBC 8.0 (4.5-11.0) K/uL RBC 2.98 L (3.30-5.50) M/uL Hgb 9.9 L (12.0-15.0) g/dL Hct 30.8 L (36.0-48.0) % MCV 103 H (80-98) fL MCH 33 H (27-31) pg MCHC 32 (32-36) % Plt Count 188 (150-400) K/uL Sodium 140 (140-148) mmol/L Potassium 3.6 (3.6-5.2) mmol/L Chloride 104 (100-108) mmol/L Carbon Dioxide 30 (21-32) mmol/L Anion Gap 6.5 (5.0-14.0) mmol/L BUN 12 (7-18) mg/dL Creatinine 0.8 (0.6-1.0) mg/dL Est Cr Clr Drug Dosing 71.00 mL/min Estimated GFR (MDRD) > 60 (>60) Glucose 122 H (74-106) mg/dL Calcium 7.9 L (8.5-10.1) mg/dL Med Orders - Current: Current Medications Acetaminophen (Tylenol) 650 mg PO Q4H PRN PRN Reason: Pain (Mild 1-3)/fever Last Admin: 01/09/18 06:46 Dose: 650 mg Albuterol (Proventil Neb Soln) 2.5 mg NEB Q4H PRN PRN Reason: Shortness Of Breath/wheezing Last Admin: 01/09/18 02:45 Dose: 2.5 mg Alprazolam (Xanax) 0.25 mg PO TID PRN PRN Reason: Anxiety Last Admin: 01/08/18 02:34 Dose: 0.25 mg Aspirin (Halfprin) 81 mg PO DAILY [facility] Last Admin: 01/09/18 09:25 Dose: 81 mg Carisoprodol (Soma) 350 mg PO QID [facility] Last Admin: 01/09/18 09:30 Dose: 350 mg Fluoxetine HCl (Prozac) 40 mg PO DAILY [facility] Last Admin: 01/09/18 09:25 Dose: 40 mg Furosemide (Lasix) 40 mg PO ONETIME ONE Stop: 01/09/18 10:10 Hydromorphone HCl (Dilaudid) 0.5 mg IVPUSH Q2H PRN PRN Reason: Pain (severe 7-10) Last Admin: 01/09/18 08:02 Dose: 0.5 mg Lactated Ringer's (Ringers, Lactated) 1,000 mls @ 75 mls/hr IV ASDIRECTED [facility] Last Admin: 01/09/18 02:43 Dose: 75 mls/hr Ibuprofen (Motrin) 600 mg PO Q6H PRN PRN Reason: Pain/Fever Last Admin: 01/09/18 04:29 Dose: 600 mg Metoprolol Succinate (Toprol Xl) 25 mg PO DAILY [facility] Last Admin: 01/09/18 09:25 Dose: 25 mg Ondansetron HCl (Zofran Odt) 4 mg PO Q6H PRN PRN Reason: Nausea able to take PO Ondansetron HCl (Zofran) 4 mg IV Q6H PRN PRN Reason: Nausea/Vomiting Oxycodone HCl (Oxycodone) 5 - 10 mg PO Q4H PRN PRN Reason: Pain Last Admin: 01/09/18 06:46 Dose: 10 mg Polyethylene Glycol (Miralax) 17 gm PO DAILY PRN PRN Reason: Constipation Prednisone (Prednisone) 5 mg PO DAILY [facility] Last Admin: 01/09/18 09:24 Dose: 5 mg Senna/Docusate Sodium (Senna Plus) 1 tab PO BID PRN PRN Reason: Constipation Last Admin: 01/08/18 21:39 Dose: 1 tab Sodium Chloride (Saline Flush) 10 ml FLUSH ASDIRECTED PRN PRN Reason: Keep Vein Open Zolpidem Tartrate (Ambien) 10 mg PO BEDTIME [facility] Last Admin: 01/08/18 21:38 Dose: 10 mg Discontinued Medications Bupivacaine HCl/Dextrose (Marcaine 0.75% Spinal) Confirm Administered Dose 2 ml .ROUTE .STK-MED ONE Stop: 01/08/18 08:32 Bupivacaine HCl/Epinephrine Bitart (Marcaine 0.5%/Epinephrine 1:200,000) Confirm Administered Dose 50 ml .ROUTE .STK-MED ONE Stop: 01/08/18 07:19 Ropivacaine 49.25 ml/Ketorolac Tromethamine 30 mg/Epinephrine HCl 0.5 mg/ Clonidine HCl 80 mcg/ Sodium Chloride 48.45 ml 0 ml INJECT ONETIME ONE Stop: 01/08/18 09:01 Last Admin: 01/08/18 10:19 Dose: 100 ml Fentanyl (Sublimaze) Confirm Administered Dose 100 mcg .ROUTE .STK-MED ONE Stop: 01/08/18 08:32 Gentamicin Sulfate (Gentamicin) Confirm Administered Dose 240 mg .ROUTE .STK- MED ONE Stop: 01/08/18 06:42 Last Admin: 01/08/18 09:32 Dose: 240 mg Hydrocortisone Sodium Succinate (Solu-Cortef) Confirm Administered Dose 100 mg .ROUTE .STK-MED ONE Stop: 01/08/18 09:15 Lactated Ringer's (Ringers, Lactated) 1,000 mls @ 100 mls/hr IV ASDIRECTED [facility] Last Admin: 01/08/18 06:07 Dose: 100 mls/hr Cefazolin Sodium/Dextrose 2 gm (/ Premix) 50 mls @ 100 mls/hr IV ONCALL ONE Stop: 01/08/18 07:59 Last Admin: 01/08/18 08:48 Dose: 100 mls/hr Lactated Ringer's (Ringers, Lactated) Confirm Administered Dose 1,000 mls @ as directed .ROUTE .STK-MED ONE Stop: 01/08/18 10:01 Cefazolin Sodium/Dextrose 2 gm (/ Premix) 50 mls @ 100 mls/hr IV Q8H [facility] Stop: 01/09/18 09:29 Last Admin: 01/09/18 08:05 Dose: 100 mls/hr Lactated Ringer's (Ringers, Lactated) 1,000 mls @ 25 mls/hr IV ASDIRECTED [facility] Lactated Ringer's (Ringers, Lactated) 500 mls @ 500 mls/hr IV ASDIRECTED [facility] Stop: 01/08/18 22:29 Last Admin: 01/08/18 21:39 Dose: 500 mls/hr Lactated Ringer's (Ringers, Lactated) 500 mls @ 500 mls/hr IV ASDIRECTED [facility] Stop: 01/09/18 02:50 Last Admin: 01/09/18 01:45 Dose: 500 mls/hr Midazolam HCl (Versed 1 Mg/Ml) Confirm Administered Dose 2 mg .ROUTE .STK-MED ONE Stop: 01/08/18 08:32 Phenylephrine HCl (Donovan-Synephrine) Confirm Administered Dose 10 mg .ROUTE .STK- MED ONE Stop: 01/08/18 09:45 Povidone Iodine (Betadine 10% Soln) Confirm Administered Dose 1 ml .ROUTE .STK- MED ONE Stop: 01/08/18 06:42 Propofol (Diprivan 20 Ml) Confirm Administered Dose 200 mg .ROUTE .STK-MED ONE Stop: 01/08/18 08:32 Propofol (Diprivan 20 Ml) Confirm Administered Dose 200 mg .ROUTE .STK-MED ONE Stop: 01/08/18 09:45 Propofol (Diprivan 20 Ml) Confirm Administered Dose 200 mg .ROUTE .STK-MED ONE Stop: 01/08/18 09:51 - Exam Quality Assessment: No: Supplemental Oxygen General: Alert, Oriented, Cooperative, No Acute Distress Neck: Supple Lungs: Clear to Auscultation, Normal Respiratory Effort Cardiovascular: Regular Rate, Regular Rhythm GI/Abdominal Exam: Normal Bowel Sounds, Soft, No Distention Extremities: No Pedal Edema. No: Increased Warmth Skin: Warm, Dry Wound/Incisions: Dressing Dry and Intact Psy/Mental Status: Alert, Normal Affect - Problem List & Annotations (1) Closed right hip fracture SNOMED Code(s): 091859417 Code(s): S72.001A - FRACTURE OF UNSP PART OF NECK OF RIGHT FEMUR, INIT Status: Acute Current Visit: Yes Qualifiers: Encounter type: initial encounter Qualified Code(s): S72.001A - Fracture of unspecified part of neck of right femur, initial encounter for closed fracture (2) Rheumatoid arthritis SNOMED Code(s): 76796867 Code(s): M06.9 - RHEUMATOID ARTHRITIS, UNSPECIFIED Status: Chronic Current Visit: Yes Qualifiers: Rheumatoid arthritis location: unspecified site Rheumatoid factor presence : without rheumatoid factor Qualified Code(s): M06.00 - Rheumatoid arthritis without rheumatoid factor, unspecified site (3) Depression with anxiety SNOMED Code(s): 29050143, 261914329 Code(s): F41.8 - OTHER SPECIFIED ANXIETY DISORDERS Status: Chronic Current Visit: Yes - Problem List Review Problem List Initiated/Reviewed/Updated: Yes - My Orders Last 24 Hours: My Active Orders 01/08/18 13:02 PT Evaluation and Treatment [CONS] Routine 01/08/18 15:15 Insert Gipson Catheter [Insert Urinary Catheter] [OM.PC] Q24H 01/08/18 22:30 Lactated Ringers [Ringers, Lactated] 1,000 ml IV ASDIRECTED 01/09/18 10:09 Furosemide [Lasix] 40 mg PO ONETIME ONE 01/09/18 10:10 Potassium Chloride [Klor-Con M20] 40 meq PO ONETIME ONE 01/10/18 05:00 BASIC METABOLIC PANEL,BMP [CHEM] Timed CBC W/O DIFF,HEMOGRAM [HEME] Timed (1) - Plan Plan:: ASSESSMENT AND PLAN - Closed fracture of the right hip - fracture secondary to fall from a height after losing her balance. She is now status post right hip hemiarthroplasty. Pain well-controlled and vitals are stable. She did have low urine output overnight and IV fluids as well as Gipson catheter monitoring of output will be continued. -Continue catheter for strict intake and output monitoring -Continue gentle fluids, reassess this afternoon -Pain control -Physical therapy Rheumatoid arthritis - chronic and stable at this time. -Pain control -Continue low-dose prednisone Maintenance issues - - DVT prophylaxis - start enoxaparin - GI prophylaxis - not indicated - Nutrition - regular diet - Gipson catheter - placed for comfort and to monitor intake and output after surgery, needs to remain in place because of low urine output, reassess this afternoon and again tomorrow if urine output remains low Disposition - I would anticipate discharge to home after the hospital stay Evangelista Dominguez M.D.
[2018-01-09] MEDS ORDERED: Furosemide 40 MG Tab PO ONE (11:00)
[2018-01-09] MEDS ORDERED: Potassium Chloride 20 MEQ Tab.ER PO ONE (11:00)
[2018-01-09] MEDS ORDERED: Enoxaparin 40 MG/0.4 ML Syringe SUBCUT ONE (12:00)
[2018-01-09] MEDS: Zolpidem 5 MG Tab PO SCH (21:29)
[2018-01-09] MEDS: ALPRAZolam 0.25 MG Tab PO PRN (23:08)
[2018-01-10] MEDS: Acetaminophen 325 MG Tab PO PRN ×4 (00:21→12:44)
[2018-01-10] MEDS: oxyCODONE 5 MG Tab PO PRN ×4 (00:21→12:43)
[2018-01-10] MEDS: Albuterol 0.083% 2.5 MG/3 ML Neb Soln NEB PRN (04:18)
[2018-01-10] MEDS: Metoprolol Succinate 25 MG Tab.ER PO SCH (08:57)
[2018-01-10] MEDS: Aspirin 81 MG Tab.EC PO SCH (08:57)
[2018-01-10] MEDS: predniSONE 5 MG Tab PO SCH (08:57)
[2018-01-10] MEDS: FLUoxetine 20 MG Cap PO SCH (08:57)
[2018-01-10] MEDS ORDERED: Enoxaparin 40 MG/0.4 ML Syringe SUBCUT SCH (09:00)
--- NOTE | 2018-01-10 11:55 | PCM.DCSUM1 ---
Discharge Summary - Hospital Course Brief History: 67-year-old female with history of rheumatoid arthritis on chronic prednisone therapy who presented with right hip pain 2 days after a fall. She was directly admitted from the clinic for surgical management of a right hip fracture. Diagnosis: Stroke: No - Discharge Data Discharge Date: 01/10/18 Discharge Disposition: Home, [facility] 06 Condition: Good - Discharge Diagnosis/Problem(s) (1) Closed right hip fracture SNOMED Code(s): 181323739 ICD Code: S72.001A - FRACTURE OF UNSP PART OF NECK OF RIGHT FEMUR, INIT Status: Acute Current Visit: Yes Qualifiers: Encounter type: initial encounter Qualified Code(s): S72.001A - Fracture of unspecified part of neck of right femur, initial encounter for closed fracture (2) Rheumatoid arthritis SNOMED Code(s): 88258681 ICD Code: M06.9 - RHEUMATOID ARTHRITIS, UNSPECIFIED Status: Chronic Current Visit: Yes Qualifiers: Rheumatoid arthritis location: unspecified site Rheumatoid factor presence : without rheumatoid factor Qualified Code(s): M06.00 - Rheumatoid arthritis without rheumatoid factor, unspecified site (3) Depression with anxiety SNOMED Code(s): 80886040, 389809697 ICD Code: F41.8 - OTHER SPECIFIED ANXIETY DISORDERS Status: Chronic Current Visit: Yes - Patient Summary/Data Consults: Consultations 01/07/18 13:02 Consult to Physician [CONS] Routine Consulting Provider: Johann Mao Call Completed to Consulting Physician: Yes Reason for Consult: right hip fracture Person Notified: Dr Mao Date Notified: 01/07/18 Special Instructions: planning surgery tomorrow 01/08/18 10:32 PT Evaluation and Treatment [CONS] Routine Please Evaluate and Treat. PT Reason for Consult: Strengthening This query below is only for informational purposes and is not editable. Admission Diagnosis/Problem: Hip fracture requiring operative repair 01/08/18 10:33 OT Evaluation and Treatment [CONS] Routine Please Evaluate and Treat. OT Reason for Consult: Strengthening This query below is only for informational purposes and is not editable. Admission Diagnosis/Problem: Hip fracture requiring operative repair 01/08/18 13:02 PT Evaluation and Treatment [CONS] Routine Please Evaluate and Treat. PT Reason for Consult: Ambulation This query below is only for informational purposes and is not editable. Hospital Course: Saba presented initially to the clinic with right hip pain. An x-ray of her hip in the clinic was suggestive of a right femoral neck fracture. She was directly admitted to the hospital and orthopedic surgery was consult. The morning after admission she had a right hip hemiarthroplasty to fix her right hip fracture. Surgery was uncomplicated. The night after surgery she did have some difficulty with low urine output and received 2 fluid boluses. Urine output improved after the fluid boluses. The remainder of her hospital stay has been unremarkable. Pain has been well-controlled. She has made steady progress with physical therapy. Her incision looks good and there is only mild bruising around the surgical site. Hemoglobin has been stable after only a very mild drop following surgery. She is ready for discharge at this time. She will be going home with home physical therapy. Her daughter will be assisting in her care. It is noted that she is on a pain contract and I did discuss extra pain medication being sent home with her primary care physician, Dr. Madden. He was okay with a short-term supply of additional pain medication as setting of an acute fracture. She also has a history of DVT in the right leg. She will be on enoxaparin for 2 weeks as DVT prophylaxis. - Patient Instructions Diet: Regular Diet as Tolerated Activity: As Tolerated Driving: Do Not Drive (if taking pain pills) Showering/Bathing: May Shower, No Tub Bathing/Swimming Wound/Incision Care: Keep Operative Site/Wound Site Clean and Dry, Change Dressing Daily Notify Provider of: Fever, Increased Pain, Swelling and Redness, Drainage Other/Special Instructions: 1. You were in the hospital for management of a right hip fracture. This fracture was treated with a right hip hemiarthroplasty. I have placed a referral to home health care to provide physical therapy after your hospital stay and ease the transition to home. I would recommend using acetaminophen and/or ibuprofen for mild pain. You can use the oxycodone (. 1 or 2 tablets) for moderate or severe pain. As your pain improves you can transition back to your usual hydrocodone dosing. 2. With your history of DVT and pulmonary embolism in the postoperative setting, I recommend that you take enoxaparin Lovenox 40 mg once daily. This medication should be injected underneath the skin on your abdomen each morning for the next 2 weeks. 3. Follow-up for staple removal on January 28. Please seek medical attention if you develop fever greater than 101, you have severe pain in the right hip or if you develop redness, swelling or drainage around your incision. - Discharge Plan *PRESCRIPTION DRUG MONITORING PROGRAM REVIEWED*: Yes *COPY OF PRESCRIPTION DRUG MONITORING REPORT IN PATIENT ALEN: No Prescriptions/Med Rec: Enoxaparin [Lovenox] 40 mg SUBCUT DAILY #14 syringe oxyCODONE 5 - 10 mg PO Q4H PRN #30 tablet PRN Reason: Pain Home Medications: Home Meds ALPRAZolam [Xanax] 0.25 mg PO TID 01/07/18 [History] Acetaminophen/HYDROcodone [[place] 325-5 MG] 1 tab PO Q6H 01/07/18 [History] Albuterol Sulfate [Proair Hfa] 2 inhalation IH Q4H PRN 01/07/18 [History] Aspirin [Halfprin] 81 mg PO DAILY 01/07/18 [History] Carisoprodol [Soma] 350 mg PO QID 01/07/18 [History] FLUoxetine HCl [Prozac] 40 mg PO DAILY 01/07/18 [History] Furosemide [Lasix] 40 mg PO ASDIRECTED 01/07/18 [History] Metoprolol Succinate [Toprol XL] 25 mg PO DAILY 01/07/18 [History] Zolpidem Tartrate [Ambien] 10 mg PO BEDTIME 01/07/18 [History] predniSONE [Prednisone] 5 mg PO DAILY 01/07/18 [History] Enoxaparin [Lovenox] 40 mg SUBCUT DAILY #14 syringe 01/10/18 [Rx] oxyCODONE 5 - 10 mg PO Q4H PRN #30 tablet 01/10/18 [Rx] Patient Handouts: Oxycodone tablets or capsules, Partial Hip Replacement, Care After Referrals: Johann Mao DO [Physician] - 01/28/18 9:00 am (staple removal) - Discharge Summary/Plan Comment DC Time >30 min.: Yes (40 - coordinating f/u, confirming pain contract ) - Patient Data Vitals - Most Recent: Last Vital Signs Temp 36.8 C 01/10/18 11:00 Pulse 93 01/10/18 11:00 Resp 18 01/10/18 11:00 BP 125/65 01/10/18 11:00 Pulse Ox 93 L 01/10/18 11:00 Weight - Most Recent: 92.85 kg I&O - Last 24 hours: Intake & Output 01/09/18 01/10/18 01/10/18 22:59 06:59 14:59 Intake Total 240 350 Output Total 550 100 Balance -550 240 250 Lab Results - Last 24 hrs: Laboratory Results - last 24 hr 01/10/18 01/10/18 Range/Units 04:23 04:23 WBC 8.5 (4.5-11.0) K/uL RBC 3.10 L (3.30-5.50) M/uL Hgb 10.2 L (12.0-15.0) g/dL Hct 31.8 L (36.0-48.0) % MCV 103 H (80-98) fL MCH 33 H (27-31) pg MCHC 32 (32-36) % Plt Count 203 (150-400) K/uL Sodium 140 (140-148) mmol/L Potassium 3.6 (3.6-5.2) mmol/L Chloride 104 (100-108) mmol/L Carbon Dioxide 29 (21-32) mmol/L Anion Gap 7.0 (5.0-14.0) mmol/L BUN 12 (7-18) mg/dL Creatinine 0.7 (0.6-1.0) mg/dL Est Cr Clr Drug Dosing 81.15 mL/min Estimated GFR (MDRD) > 60 (>60) Glucose 103 (74-106) mg/dL Calcium 8.3 L (8.5-10.1) mg/dL Med Orders - Current: Current Medications Acetaminophen (Tylenol) 650 mg PO Q4H PRN PRN Reason: Pain (Mild 1-3)/fever Last Admin: 01/10/18 08:57 Dose: 650 mg Albuterol (Proventil Neb Soln) 2.5 mg NEB Q4H PRN PRN Reason: Shortness Of Breath/wheezing Last Admin: 01/10/18 04:18 Dose: 2.5 mg Alprazolam (Xanax) 0.25 mg PO TID PRN PRN Reason: Anxiety Last Admin: 01/09/18 23:08 Dose: 0.25 mg Aspirin (Halfprin) 81 mg PO DAILY [facility] Last Admin: 01/10/18 08:57 Dose: 81 mg Carisoprodol (Soma) 350 mg PO QID [facility] Last Admin: 01/10/18 09:02 Dose: Not Given Enoxaparin Sodium (Lovenox) 40 mg SUBCUT DAILY [facility] Last Admin: 01/10/18 08:56 Dose: 40 mg Fluoxetine HCl (Prozac) 40 mg PO DAILY [facility] Last Admin: 01/10/18 08:57 Dose: 40 mg Hydromorphone HCl (Dilaudid) 0.5 mg IVPUSH Q2H PRN PRN Reason: Pain (severe 7-10) Last Admin: 01/09/18 08:02 Dose: 0.5 mg Ibuprofen (Motrin) 600 mg PO Q6H PRN PRN Reason: Pain/Fever Last Admin: 01/09/18 19:52 Dose: 600 mg Metoprolol Succinate (Toprol Xl) 25 mg PO DAILY [facility] Last Admin: 01/10/18 08:57 Dose: 25 mg Ondansetron HCl (Zofran Odt) 4 mg PO Q6H PRN PRN Reason: Nausea able to take PO Ondansetron HCl (Zofran) 4 mg IV Q6H PRN PRN Reason: Nausea/Vomiting Oxycodone HCl (Oxycodone) 5 - 10 mg PO Q4H PRN PRN Reason: Pain Last Admin: 01/10/18 08:58 Dose: 10 mg Polyethylene Glycol (Miralax) 17 gm PO DAILY PRN PRN Reason: Constipation Prednisone (Prednisone) 5 mg PO DAILY [facility] Last Admin: 01/10/18 08:57 Dose: 5 mg Senna/Docusate Sodium (Senna Plus) 1 tab PO BID PRN PRN Reason: Constipation Last Admin: 01/08/18 21:39 Dose: 1 tab Sodium Chloride (Saline Flush) 10 ml FLUSH ASDIRECTED PRN PRN Reason: Keep Vein Open Zolpidem Tartrate (Ambien) 10 mg PO BEDTIME [facility] Last Admin: 01/09/18 21:29 Dose: 10 mg Discontinued Medications Bupivacaine HCl/Dextrose (Marcaine 0.75% Spinal) Confirm Administered Dose 2 ml .ROUTE .STK-MED ONE Stop: 01/08/18 08:32 Bupivacaine HCl/Epinephrine Bitart (Marcaine 0.5%/Epinephrine 1:200,000) Confirm Administered Dose 50 ml .ROUTE .STK-MED ONE Stop: 01/08/18 07:19 Ropivacaine 49.25 ml/Ketorolac Tromethamine 30 mg/Epinephrine HCl 0.5 mg/ Clonidine HCl 80 mcg/ Sodium Chloride 48.45 ml 0 ml INJECT ONETIME ONE Stop: 01/08/18 09:01 Last Admin: 01/08/18 10:19 Dose: 100 ml Enoxaparin Sodium (Lovenox) 40 mg SUBCUT ONETIME ONE Stop: 01/09/18 12:01 Last Admin: 01/09/18 12:07 Dose: 40 mg Fentanyl (Sublimaze) Confirm Administered Dose 100 mcg .ROUTE .STK-MED ONE Stop: 01/08/18 08:32 Furosemide (Lasix) 40 mg PO ONETIME ONE Stop: 01/09/18 11:01 Last Admin: 01/09/18 11:43 Dose: 40 mg Gentamicin Sulfate (Gentamicin) Confirm Administered Dose 240 mg .ROUTE .STK- MED ONE Stop: 01/08/18 06:42 Last Admin: 01/08/18 09:32 Dose: 240 mg Hydrocortisone Sodium Succinate (Solu-Cortef) Confirm Administered Dose 100 mg .ROUTE .STK-MED ONE Stop: 01/08/18 09:15 Lactated Ringer's (Ringers, Lactated) 1,000 mls @ 100 mls/hr IV ASDIRECTED [facility] Last Admin: 01/08/18 06:07 Dose: 100 mls/hr Cefazolin Sodium/Dextrose 2 gm (/ Premix) 50 mls @ 100 mls/hr IV ONCALL ONE Stop: 01/08/18 07:59 Last Admin: 01/08/18 08:48 Dose: 100 mls/hr Lactated Ringer's (Ringers, Lactated) Confirm Administered Dose 1,000 mls @ as directed .ROUTE .STK-MED ONE Stop: 01/08/18 10:01 Cefazolin Sodium/Dextrose 2 gm (/ Premix) 50 mls @ 100 mls/hr IV Q8H [facility] Stop: 01/09/18 09:29 Last Admin: 01/09/18 08:05 Dose: 100 mls/hr Lactated Ringer's (Ringers, Lactated) 1,000 mls @ 25 mls/hr IV ASDIRECTED [facility] Lactated Ringer's (Ringers, Lactated) 500 mls @ 500 mls/hr IV ASDIRECTED [facility] Stop: 01/08/18 22:29 Last Admin: 01/08/18 21:39 Dose: 500 mls/hr Lactated Ringer's (Ringers, Lactated) 1,000 mls @ 75 mls/hr IV ASDIRECTED [facility] Last Admin: 01/09/18 02:43 Dose: 75 mls/hr Lactated Ringer's (Ringers, Lactated) 500 mls @ 500 mls/hr IV ASDIRECTED [facility] Stop: 01/09/18 02:50 Last Admin: 01/09/18 01:45 Dose: 500 mls/hr Midazolam HCl (Versed 1 Mg/Ml) Confirm Administered Dose 2 mg .ROUTE .STK-MED ONE Stop: 01/08/18 08:32 Phenylephrine HCl (Donovan-Synephrine) Confirm Administered Dose 10 mg .ROUTE .STK- MED ONE Stop: 01/08/18 09:45 Potassium Chloride (Klor-Con M20) 40 meq PO ONETIME ONE Stop: 01/09/18 11:01 Last Admin: 01/09/18 11:44 Dose: 40 meq Povidone Iodine (Betadine 10% Soln) Confirm Administered Dose 1 ml .ROUTE .STK- MED ONE Stop: 01/08/18 06:42 Propofol (Diprivan 20 Ml) Confirm Administered Dose 200 mg .ROUTE .STK-MED ONE Stop: 01/08/18 08:32 Propofol (Diprivan 20 Ml) Confirm Administered Dose 200 mg .ROUTE .STK-MED ONE Stop: 01/08/18 09:45 Propofol (Diprivan 20 Ml) Confirm Administered Dose 200 mg .ROUTE .STK-MED ONE Stop: 01/08/18 09:51 - Exam Quality Assessment: Denies: Supplemental Oxygen General: Reports: Alert, Oriented, Cooperative, No Acute Distress Neck: Reports: Supple Lungs: Reports: Normal Respiratory Effort GI/Abdominal Exam: No Distention Extremities: No Pedal Edema Wound/Incisions: Reports: Healing Well, No Drainage, Other (staple line intact on the right hip wound. She does have some bruising anterior to the distal portion of the incision as well as just distal to the incision. There is no drainage.) Psy/Mental Status: Reports: Alert, Normal Affect *Q Meaningful Use (DIS) - VTE *Q VTE Pharmacological Contraindications *Q: Patient Scheduled Surgery
== END 2018-01-10 14:15 | disposition home health service (06) | DRG 470 ==
LOC: JP.MS 12:09
PROVIDERS: ADMIT Internal Medicine; ATTEND Orthopaedic Surgery
PROC: 0SRR0JZ Replacement of Right Hip Joint, Femoral Surface with Synthetic Substitute, Open Approach (ICD-10-PCS; principal; 2018-01-08)
DX: S72.011A Unspecified intracapsular fracture of right femur, initial encounter for closed fracture (principal); W01.0XXA Fall on same level from slipping, tripping and stumbling without subsequent striking against object, initial encounter; M06.9 Rheumatoid arthritis, unspecified; F41.8 Other specified anxiety disorders; M54.40 Lumbago with sciatica, unspecified side; I48.91 Unspecified atrial fibrillation; J45.909 Unspecified asthma, uncomplicated; G47.30 Sleep apnea, unspecified; G89.29 Other chronic pain; I34.1 Nonrheumatic mitral (valve) prolapse; E05.90 Thyrotoxicosis, unspecified without thyrotoxic crisis or storm; E66.9 Obesity, unspecified; Z86.718 Personal history of other venous thrombosis and embolism; Z79.899 Other long term (current) drug therapy; Z90.49 Acquired absence of other specified parts of digestive tract; Z90.710 Acquired absence of both cervix and uterus; Z79.52 Long term (current) use of systemic steroids; Z88.6 Allergy status to analgesic agent; Z91.041 Radiographic dye allergy status; Z91.040 Latex allergy status; Z79.82 Long term (current) use of aspirin
CPT/HCPCS: 36415; 71045; 71045-26; 73501-26-RT; 73501-RT; 80048; 85025; 85027; 86850; 86900; 86901; 94640; 97110-GP; 97116-GP; 97162-GP; 97165-GO; 97530-GP; 97535-GP; A9270-GY; J0171; J0690; J0735; J1170; J1580; J1650; J1720; J1885; J2250; J2370; J2704; J2795; J3010; J3490; J7050; J7120

== ENCOUNTER 2018-09-12 08:52 | Day surgery (SDC) | payer MEDICARE, OTHER ==
[2018-09-12] MEDS ORDERED: Propofol 200 MG/20 ML SDV ONE (09:36)
[2018-09-12] MEDS ORDERED: fentaNYL 100 MCG/2 ML SDV ONE (09:36)
[2018-09-12] MEDS ORDERED: Midazolam 1 MG/ML 2 ML SDV ONE (09:36)
[2018-09-12] MEDS ORDERED: Glycopyrrolate 0.2 MG/ML 2 ML SDV IVPUSH ONE (09:58)
[2018-09-12] MEDS ORDERED: Dextrose 5%-Lactated Ringers 1,000 ML IV SCH (10:00)
[2018-09-12] MEDS ORDERED: Piperacillin/Tazobactam/Dext 3.375 GM in Premix Bag 1 BAG IV ONE (10:15)
[2018-09-12] MEDS ORDERED: Pantoprazole 40 MG Vial IVPUSH ONE (11:27)
--- NOTE | 2018-09-18 11:05 | OR ---
DATE OF PROCEDURE: 09/12/2018 PREOPERATIVE DIAGNOSIS: Recent history suggestive of upper gastrointestinal bleeding. POSTOPERATIVE DIAGNOSES: 1. Mildly active gastroesophageal reflux disease with some associated small hiatal hernia. 2. Very focal distal gastritis. PROCEDURE: Esophagogastroduodenoscopy with: 1. Biopsies of antrum for CLOtest. 2. Biopsies of esophagogastric junction for histologic evaluation. INDICATION FOR PROCEDURE: The patient presents with some recent history suggestive of gastrointestinal bleeding with some black tarry stools, some mild epigastric pain, started on Nexium and has only taken one dose of this. The plan is to do an upper GI endoscopy with biopsies as indicated. Potential risks including bleeding and perforation were discussed, and the patient wishes to proceed. PROCEDURE IN DETAIL: The patient was taken to the operating room and placed in a left lateral decubitus position. IV sedation was administered, after which the upper GI endoscope was passed orally through the length of the esophagus into the stomach with retroflexion view of the fundus, and thereafter through the pyloric channel and into the proximal duodenum. Findings included normal hypopharynx, larynx, upper esophageal sphincter, and esophageal body. At the EG junction, there was a small hiatal hernia with mucosa there being somewhat friable and slightly edematous. There were no erosions or ulcers were seen. 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 There is no stricturing or plaquing suggestive of neoplasia, and no stricturing identified. Within the stomach and the small bowel, retained bile was present. Beginning in the distal body extending through the antrum, there were some patchy focal gastritis. Again, at this point, there were no erosions or ulcers. The pyloric channel and duodenum to the second through fourth portions were unremarkable. At this point, biopsies were obtained from the antrum and sent for CLOtest for H. pylori, and then multiple biopsies were obtained from esophagogastric junction for histologic evaluation. No bleeding from the site was identified. The patient was taken to the recovery room in satisfactory condition. At this point, we will have the patient continue the omeprazole and she will be instructed to follow up with Dr. Madden at [facility] in 7 to 10 days. Valdez Mao MD /[id number]
== END 2018-09-12 12:41 | disposition home or self-care (01) ==
LOC: JP.SDS 08:52
PROVIDERS: ATTEND Surgery
DX: K29.71 Gastritis, unspecified, with bleeding (principal); K21.9 Gastro-esophageal reflux disease without esophagitis; K20.9 Esophagitis, unspecified; K44.9 Diaphragmatic hernia without obstruction or gangrene; I10 Essential (primary) hypertension; Z90.49 Acquired absence of other specified parts of digestive tract
CPT/HCPCS: 43239; 87081; 88305; C9113; J2250; J2543; J2704; J3010; J3490; J7042

== ENCOUNTER 2018-10-08 12:08 | Emergency (ER) | payer MEDICARE, OTHER ==
[2018-10-08] MEDS: Albuterol/Ipratropium 3.0-0.5 MG/3 ML Neb Soln NEB ONE (12:42)
[2018-10-08] MEDS: methylPREDNISolone Sodium Succinate 125 MG/2 ML SDV IVPUSH ONE (12:42)
--- NOTE | 2018-10-08 12:45 | EDM.PDOC ---
ED HPI GENERAL MEDICAL PROBLEM - General Chief Complaint: Respiratory Problem Stated Complaint: SOB, TIGHTNESS IN CHEST Time Seen by Provider: 10/08/18 12:30 Source of Information: Reports: Patient, Provider History Limitations: Reports: No Limitations - History of Present Illness INITIAL COMMENTS - FREE TEXT/NARRATIVE: 68-year-old female who has had chronic asthma which is usually well controlled with inhalers, has been persistently short of breath and wheezing for the past month. CT of her chest 2 weeks ago was normal, echocardiogram done earlier this week showed mild left ventricular dysfunction but otherwise normal. She was in the clinic getting a consultation regarding macrocytosis, and the provider noticed her uncomfortable and wheezing so sent her to the emergency room. She has no fevers or chills, no productive cough. She is not exposed to animals. This all seemed to start when she had "pneumonia" which never seemed to get completely better. Onset: Gradual Duration: Week(s): (4-5 weeks of symptoms) Associated Symptoms: Reports: Cough, Shortness of Breath. Denies: Fever/Chills , Nausea/Vomiting - Related Data Allergies Allergy/AdvReac Type Severity Reaction Status Date / Time Iodinated Contrast- Oral and Allergy Severe Difficulty Verified 01/07/18 12:32 IV Dye Breathing [Iodinated Contrast Media - IV Dye] latex Allergy Cannot Verified 07/31/13 14:59 Remember tramadol AdvReac Confusion Verified 01/07/18 12:42 Home Meds: Home Meds ALPRAZolam [Xanax] 0.25 mg PO TID 01/07/18 [History] Acetaminophen/HYDROcodone [[place] 325-5 MG] 1 tab PO Q6H 01/07/18 [History] Albuterol Sulfate [Proair Hfa] 2 inhalation IH Q4H PRN 01/07/18 [History] Aspirin [Halfprin] 81 mg PO DAILY 01/07/18 [History] Carisoprodol [Soma] 350 mg PO QID 01/07/18 [History] FLUoxetine HCl [Prozac] 40 mg PO DAILY 01/07/18 [History] Furosemide [Lasix] 40 mg PO DAILY 01/07/18 [History] Metoprolol Succinate [Toprol XL] 25 mg PO DAILY 01/07/18 [History] Zolpidem Tartrate [Ambien] 10 mg PO BEDTIME 01/07/18 [History] predniSONE [Prednisone] 5 mg PO DAILY 01/07/18 [History] Benzonatate [Tessalon Perle] 100 mg PO TID 09/11/18 [History] Esomeprazole Magnesium [Nexium] 20 mg PO ASDIRECTED 09/12/18 [History] Past Medical History Cardiovascular History: Reports: Arrhythmia, Heart Failure, Heart Murmur, Other (See Below) Other Cardiovascular History: mitral valve prolapse; Respiratory History: Reports: Asthma, Sleep Apnea Gastrointestinal History: Reports: Bowel Obstruction, Diverticulosis, Hiatal Hernia, Other (See Below) Other Gastrointestinal History: "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" Genitourinary History: Reports: None [employer] 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: Reports: Dysfunctional Uterine Bleeding, Musculoskeletal History: Reports: Arthritis, Back Pain, Chronic, Fracture, RA Neurological History: Reports: None Psychiatric History: Reports: Addiction, Anxiety, Depression Other Psychiatric History: No alcohol since 1982; history of alcoholism Endocrine/Metabolic History: Reports: Other (See Below) Other Endocrine/Metabolic History: thyroid goiter Hematologic History: Reports: Anticoagulation Therapy Immunologic History: Reports: Immunosuppression - Infectious Disease History Infectious Disease History: Reports: Chicken Pox, Measles - Past Surgical History HEENT Surgical History: Reports: Other (See Below) Other HEENT Surgeries/Procedures: uvulectomy Cardiovascular Surgical History: Reports: None Respiratory Surgical History: Reports: Other (See Below) Other Respiratory Surgeries/Procedures: "Nelson is watching a nodule on the left lung through scans" GI Surgical History: Reports: Cholecystectomy, Colonoscopy, EGD, Other (See Below) Other GI Surgeries/Procedures: colon resection in 2006 for diverticulitis Female Surgical History: Reports: Breast Biopsy, Hysterectomy, Salpingo- Oophorectomy Endocrine Surgical History: Reports: None Neurological Surgical History: Reports: Other (See Below) Other Neurological Surgeries/Procedures: history of fracture, L4-L5, S1 Musculoskeletal Surgical History: Reports: Hip Replacement Other Musculoskeletal Surgeries/Procedures:: right Social & Family History - Family History Family Medical History: Noncontributory - Tobacco Use Smoking Status *Q: Former Smoker Used Tobacco, but Quit: Yes Month/Year Tobacco Last Used: 1979 - Caffeine Use Caffeine Use: Reports: Coffee - Recreational Drug Use Recreational Drug Use: No ED ROS GENERAL - Review of Systems Review Of Systems: See Below Constitutional: Denies: Fever, Chills HEENT: Denies: Throat Pain Respiratory: Reports: Shortness of Breath, Wheezing, Cough Cardiovascular: Reports: Chest Pain (Experiencing mild chest pressure with coughing) GI/Abdominal: Denies: Abdominal Pain : Reports: No Symptoms Skin: Reports: No Symptoms Neurological: Denies: Headache ED EXAM, GENERAL - Physical Exam Exam: See Below Exam Limited By: No Limitations General Appearance: Alert, No Apparent Distress Eye Exam: Bilateral Eye: Normal Inspection Throat/Mouth: Normal Inspection Head: Atraumatic Respiratory/Chest: Wheezing (Diffuse inspiratory and expiratory wheezes with mild increased respiratory effort) Cardiovascular: Regular Rate, Rhythm Extremities: Normal Inspection Neurological: Alert, Oriented Psychiatric: Normal Affect, Normal Mood Course - Vital Signs Last Recorded V/S: Last Vital Signs Temp 96.8 F 10/08/18 12:14 Pulse 89 10/08/18 12:14 Resp 20 10/08/18 12:14 BP 161/92 H 10/08/18 12:14 Pulse Ox 94 L 10/08/18 12:14 - Orders/Labs/Meds Orders: Active Orders 24 hr Category Date Time Status RT Aerosol Therapy [RC] ASDIRECTED Care 10/08/18 12:38 Active Labs: Laboratory Tests 10/08/18 Range/Units 12:43 WBC 8.6 (4.5-11.0) K/uL RBC 3.59 (3.30-5.50) M/uL Hgb 11.8 L (12.0-15.0) g/dL Hct 37.5 (36.0-48.0) % MCV 105 H (80-98) fL MCH 33 H (27-31) pg MCHC 32 (32-36) % Plt Count 307 (150-400) K/uL Neut % (Auto) 52 (36-66) % Lymph % (Auto) 23 L (24-44) % Evangeline % (Auto) 9 H (2-6) % Eos % (Auto) 15 H (2-4) % Baso % (Auto) 1 (0-1) % Percent Retic 0.8 (0.5-1.5) % Meds: Medications Discontinued Medications Generic Name Dose Route Start Last Admin Trade Name Freq PRN Reason Stop Dose Admin Albuterol/Ipratropium 3 ml 10/08/18 12:38 10/08/18 12:42 Duoneb 3.0-0.5 Mg/3 Ml NEB 10/08/18 12:39 3 ml ONETIME ONE Administration Methylprednisolone Sodium Succinate 125 mg 10/08/18 12:38 10/08/18 12:42 Solu-Medrol IVPUSH 10/08/18 12:39 125 mg ONETIME ONE Administration - Re-Assessments/Exams Free Text/Narrative Re-Assessment/Exam: 10/08/18 13:08 Patient was given a DuoNeb and 250 mg of IV Solu-Medrol. She just had a CT of her chest within the last 2 weeks making a chest x-ray unnecessary. The DuoNeb gave her moderate objective improvement, as well as considerably less wheezing on exam. She'll be placed on a DuoNeb nebulizer, prescriptions written, for twice daily treatments. Also start Advair 250/50 twice daily. Prednisone 60 mg a day for 5 consecutive days. Recheck on as scheduled. Departure - Departure Time of Disposition: 13:27 Disposition: Home, Self-Care 01 Condition: Good Clinical Impression: Asthma attacks lasting more than 24 hours - Discharge Information Instructions: Asthma, Adult Referrals: Jose M Madden MD [Primary Care Provider] - Forms: ED Department Discharge Care Plan Goals: Take 60 mg of prednisone each morning with your first meal starting tomorrow the , and continue for at least 4 days and up to 6 days. Recheck as scheduled. Also start Advair and nebulizers as prescribed. Return anytime if worsening despite treatment. - My Orders Last 24 Hours: My Active Orders 10/08/18 12:38 RT Aerosol Therapy [RC] ASDIRECTED - Assessment/Plan Last 24 Hours: My Active Orders 10/08/18 12:38 RT Aerosol Therapy [RC] ASDIRECTED
== END 2018-10-08 13:27 | disposition home or self-care (01) ==
LOC: JP.ED 12:08
DX: J45.909 Unspecified asthma, uncomplicated (principal); I50.9 Heart failure, unspecified; F41.9 Anxiety disorder, unspecified; F32.9 Major depressive disorder, single episode, unspecified; Z79.01 Long term (current) use of anticoagulants; Z79.82 Long term (current) use of aspirin; Z79.899 Other long term (current) drug therapy; Z91.041 Radiographic dye allergy status; Z91.040 Latex allergy status; Z88.6 Allergy status to analgesic agent; Z87.891 Personal history of nicotine dependence
CPT/HCPCS: 36415; 85025; 85045; 94640; 96374; 99284; J2930; J7620-GY

== ENCOUNTER 2018-10-25 06:40 | Day surgery (SDC) | payer MEDICARE ==
[2018-10-25] MEDS: Sodium Chloride 0.9% 1,000 ML IV SCH (07:22)
[2018-10-25] MEDS ORDERED: fentaNYL 100 MCG/2 ML SDV ONE (07:35)
[2018-10-25] MEDS ORDERED: Propofol 200 MG/20 ML SDV ONE (07:35)
[2018-10-25] MEDS ORDERED: Midazolam 1 MG/ML 2 ML SDV ONE (07:35)
[2018-10-25] MEDS ORDERED: Ampicillin 2 GM in Sodium Chloride 0.9% 100 ML IV ONE (08:30)
--- NOTE | 2018-10-25 13:47 | OR ---
DATE OF PROCEDURE: 10/25/2018 PROCEDURE: Colonoscopy. FINDINGS: 1. Diverticulosis, moderate. 2. Remaining 70 cm of colon including cecum (the patient felt she had a subtotal colectomy). 3. No evidence of bleeding. However, most likely etiology of bleeding is the remnant diverticulosis. PREOPERATIVE DIAGNOSIS: Gastrointestinal bleeding. POSTOPERATIVE DIAGNOSIS: Gastrointestinal bleeding. RISKS: Risks, benefits, alternatives, and limitations including, but limited to infection, bleeding, and perforation were explained to the patient who wished to proceed. PROCEDURE IN DETAIL: The patient was placed in left lateral decubitus position. Digital rectal exam was performed without abnormality. The scope was introduced and advanced atraumatically to 7 cm. The appendiceal orifice and ileocecal valve were readily identified. The scope was brought back to the remainder of the colon. The patient's diverticulosis would be described as moderate. No abnormalities on retroflex. No old or new blood. No colitis. No masses or polyps. The patient tolerated the procedure well. Pete Romero MD /[id number]
== END 2018-10-25 09:44 | disposition home or self-care (01) ==
LOC: JP.SDS 06:40
PROVIDERS: ATTEND Surgery
DX: K57.31 Diverticulosis of large intestine without perforation or abscess with bleeding (principal); K21.9 Gastro-esophageal reflux disease without esophagitis; I10 Essential (primary) hypertension; E03.9 Hypothyroidism, unspecified; J45.909 Unspecified asthma, uncomplicated; Z90.49 Acquired absence of other specified parts of digestive tract; Z91.040 Latex allergy status; Z87.891 Personal history of nicotine dependence
CPT/HCPCS: 45378; J2250; J2704; J3010; J7030

== ENCOUNTER 2019-04-30 05:27 | Emergency (ER) | payer MEDICARE ==
[2019-04-30] MEDS ORDERED: HYDROmorphone 0.5 MG/0.5 ML Syringe IVPUSH ONE (05:53)
--- NOTE | 2019-04-30 06:00 | EDM.PDOC ---
<Sudhir De La Fuente G - Last Filed: 04/30/19 06:21> ED HPI GENERAL MEDICAL PROBLEM - General Chief Complaint: Lower Extremity Injury/Pain Stated Complaint: MEDICAL VIA [facility] Time Seen by Provider: 04/30/19 05:50 Source of Information: Reports: Patient, EMS, Old Records, RN History Limitations: Reports: No Limitations - History of Present Illness INITIAL COMMENTS - FREE TEXT/NARRATIVE: 68 yo female with recent R hip replacement here by Dr. Telles was getting back into bed and felt a pop. She was unable to move that R leg at the hip jt after this. Here via EMS. Fentanyl given en route with partial relief. here as well. Onset: Today Onset Date: 04/30/19 Duration: Minutes:, Constant Location: Reports: Lower Extremity, Right (hip) Quality: Reports: Ache Severity: Moderate Improves with: Reports: Rest Worsens with: Reports: Movement Context: Reports: Other (See HPI) Associated Symptoms: Reports: No Other Symptoms Treatments DIRECTOR FIXED INCOME: Reports: See EMS Report Other Treatments DIRECTOR FIXED INCOME: 100 mcg Fentanyl Right Hip Pain Score (Numeric/FACES): 9 - Related Data Allergies Allergy/AdvReac Type Severity Reaction Status Date / Time Iodinated Contrast Media Allergy Severe Difficulty Verified 04/07/19 10:21 [Iodinated Contrast Media - Breathing IV Dye] latex Allergy Cannot Verified 04/07/19 10:21 Remember triamcinolone Allergy Other Verified 04/07/19 10:21 tramadol AdvReac Confusion Verified 04/07/19 10:21 Home Meds: Home Meds ALPRAZolam [Xanax] 0.25 mg PO TID PRN 01/07/18 [History] Acetaminophen/HYDROcodone [Admire 325-5 MG] 1 tab PO Q6H 01/07/18 [History] Albuterol Sulfate [Proair Hfa] 2 inhalation IH Q4H PRN 01/07/18 [History] Aspirin [Halfprin] 81 mg PO DAILY 01/07/18 [History] Carisoprodol [Soma] 350 mg PO BID 01/07/18 [History] FLUoxetine HCl [Prozac] 40 mg PO DAILY 01/07/18 [History] Furosemide [Lasix] 40 mg PO DAILY 01/07/18 [History] Metoprolol Succinate [Toprol XL] 25 mg PO DAILY 01/07/18 [History] Zolpidem Tartrate [Ambien] 10 mg PO BEDTIME 01/07/18 [History] predniSONE [Prednisone] 5 mg PO DAILY 01/07/18 [History] Esomeprazole Magnesium [Nexium] 20 mg PO DAILY PRN 09/12/18 [History] Albuterol/Ipratropium [DuoNeb 3.0-0.5 MG/3 ML] 3 ml INH Q4HR PRN 10/24/18 [ History] Fluticasone/Salmeterol [Advair 250-50 Diskus] 1 puff INH BID 10/24/18 [History] diphenhydrAMINE [Benadryl] 25 mg PO BEDTIME PRN 10/24/18 [History] Enoxaparin Sodium [Lovenox] 30 mg SQ DAILY 21 Days #21 ml 04/11/19 [Rx] Iron 18 mg PO DAILY 30 Days #30 tablet 04/11/19 [Rx] Ondansetron HCl [Zofran] 4 mg PO Q6HR PRN #20 tablet 04/11/19 [Rx] oxyCODONE 10 mg PO Q6HR PRN #28 tablet 04/18/19 [Rx] oxyCODONE ER [OxyCONTIN] 20 mg PO Q12HR 7 Days #14 tab.er 04/18/19 [Rx] oxyCODONE ER [OxyCONTIN] 20 mg PO Q12HR 4 Days #8 tab.er 04/25/19 [Rx] oxyCODONE 10 mg PO Q6HR PRN 7 Days #28 tablet 04/28/19 [Rx] oxyCODONE ER [OxyCONTIN] 20 mg PO Q12HR 7 Days #14 tab.er 04/28/19 [Rx] Past Medical History HEENT History: Reports: Allergic Rhinitis Cardiovascular History: Reports: Arrhythmia, Heart Failure, Heart Murmur, Other (See Below) Other Cardiovascular History: mitral valve prolapse; Respiratory History: Reports: Asthma, Sleep Apnea Gastrointestinal History: Reports: Bowel Obstruction, Cholelithiasis, Diverticulosis, GERD, Hiatal Hernia, Other (See Below) Other Gastrointestinal History: "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" Genitourinary History: Reports: None 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: Dysfunctional Uterine Bleeding, Musculoskeletal History: Reports: Arthritis, Back Pain, Chronic, Fracture, RA Other Musculoskeletal History: R hip pain Neurological History: Reports: None Psychiatric History: Reports: Addiction, Anxiety, Depression Other Psychiatric History: No alcohol since 1982; history of alcoholism Endocrine/Metabolic History: Reports: Obesity/BMI 30+, Other (See Below) Other Endocrine/Metabolic History: thyroid goiter Hematologic History: Reports: Anticoagulation Therapy Immunologic History: Reports: Immunosuppression Oncologic (Cancer) History: Reports: None - Infectious Disease History Infectious Disease History: Reports: Chicken Pox, Measles, Mumps - Past Surgical History HEENT Surgical History: Reports: Tonsillectomy, Other (See Below) Other HEENT Surgeries/Procedures: uvulectomy Cardiovascular Surgical History: Reports: None Respiratory Surgical History: Reports: Other (See Below) Other Respiratory Surgeries/Procedures: "Nelson is watching a nodule on the left lung through scans" GI Surgical History: Reports: Cholecystectomy, Colonoscopy, EGD, Other (See Below) Other GI Surgeries/Procedures: colon resection in 1996 for diverticulitis, removal of 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 in 2007 Female Surgical History: Reports: Breast Biopsy, Hysterectomy, Salpingo- Oophorectomy Endocrine Surgical History: Reports: None Neurological Surgical History: Reports: Other (See Below) Other Neurological Surgeries/Procedures: history of fracture, L4-L5, S1 Musculoskeletal Surgical History: Reports: Hip Replacement, Other (See Below) Other Musculoskeletal Surgeries/Procedures:: right , left ankle surgery. right hip and femur surgery Dermatological Surgical History: Reports: None Social & Family History - Family History Family Medical History: Noncontributory - Tobacco Use Smoking Status *Q: Former Smoker Used Tobacco, but Quit: Yes Month/Year Tobacco Last Used: 30 years ago - Caffeine Use Caffeine Use: Reports: Coffee Caffeine Use Comment: one cup of coffee per day - Recreational Drug Use Recreational Drug Use: No Review of Systems - Review of Systems Review Of Systems: ROS reveals no pertinent complaints other than HPI. Musculoskeletal: Reports: Joint Pain (R hip) Skin: Reports: No Symptoms Neurological: Reports: No Symptoms ED EXAM, GENERAL - Physical Exam Exam: See Below Exam Limited By: No Limitations General Appearance: Alert, WD/WN, Mild Distress Eye Exam: Bilateral Eye: Normal Inspection Ears: Normal External Exam, Normal Canal, Hearing Grossly Normal Ear Exam: Bilateral Ear: Auricle Normal, Canal Normal, TM normal Nose: Normal Inspection, No Blood Throat/Mouth: Normal Inspection, Normal Lips, Normal Oropharynx, Normal Voice, No Airway Compromise Head: Atraumatic, Normocephalic Neck: Normal Inspection Respiratory/Chest: No Respiratory Distress, Lungs Clear, No Accessory Muscle Use , Chest Non-Tender Cardiovascular: Regular Rate, Rhythm, No Edema Back Exam: Normal Inspection Extremities: Limited Range of Motion (R leg internally rotated, fixed in this position). No: Pedal Edema Neurological: Alert, Oriented, CN II-XII Intact, Normal Cognition Psychiatric: Normal Affect, Normal Mood Skin Exam: Warm, Dry, Intact, Normal Color, No Rash Course - Vital Signs Text/Narrative:: Dr. Telles notified @ 06h. Last Recorded V/S: Last Vital Signs Temp 36.0 C 04/30/19 05:33 Pulse 85 04/30/19 07:45 Resp 11 L 04/30/19 07:45 BP 112/64 04/30/19 07:45 Pulse Ox 99 04/30/19 07:45 - Orders/Labs/Meds Orders: Active Orders 24 hr Category Date Time Status Hip Min 1V Rt [CR] Stat Exams 04/30/19 07:24 Taken Meds: Medications Discontinued Medications Generic Name Dose Route Start Last Admin Trade Name Freq PRN Reason Stop Dose Admin Hydromorphone HCl 0.5 mg 04/30/19 05:53 04/30/19 06:02 Dilaudid IVPUSH 04/30/19 05:54 0.5 mg ONETIME ONE Administration Propofol Confirm 04/30/19 07:03 04/30/19 07:49 Diprivan 100 Ml Administered 04/30/19 07:04 Not Given Dose 100 mls @ as directed .ROUTE .STK-MED ONE Sodium Chloride 1,000 mls @ 1,000 mls/hr 04/30/19 07:12 04/30/19 07:15 Normal Saline IV 04/30/19 08:11 1,000 mls/hr .BOLUS ONE Administration Propofol Confirm 04/30/19 07:04 04/30/19 07:48 Diprivan 20 Ml Administered 04/30/19 07:05 Not Given Dose 200 mg .ROUTE .STK-MED ONE Propofol 200 mg 04/30/19 07:29 04/30/19 07:48 Diprivan 20 Ml IVPUSH 04/30/19 07:30 200 mg ONETIME ONE Administration Propofol Confirm 04/30/19 08:15 Diprivan 20 Ml Administered 04/30/19 08:16 Dose 200 mg .ROUTE .STK-MED ONE Succinylcholine Chloride 200 mg 04/30/19 07:29 04/30/19 07:29 Quelicin IV 04/30/19 07:30 200 mg STAT ONE Administration - Radiology Interpretation Free Text/Narrative:: R hip [id number] Departure - Departure Disposition: Home, Self-Care 01 Clinical Impression: Dislocated hip - Discharge Information Referrals: Jose M Madden MD [Primary Care Provider] - Forms: ED Department Discharge Care Plan Goals: usual precautions to prevent dislocation, cont usual pain meds. appt with ortho 1 week. <Aura Blackwood - Last Filed: 04/30/19 08:36> Course - Re-Assessments/Exams Free Text/Narrative Re-Assessment/Exam: 04/30/19 08:35 pt is stable and doing well post anesthia. Departure - Departure Time of Disposition: 08:35 Condition: Fair
[2019-04-30] MEDS ORDERED: Propofol 200 MG/20 ML SDV ONE ×2 (07:04→08:15)
[2019-04-30] MEDS ORDERED: Sodium Chloride 0.9% 1,000 ML IV ONE (07:12)
--- NOTE | 2019-04-30 07:20 | CRLCR ---
INDICATION: Post hip revision 3 weeks ago. Deformity. Pain. Fell a pop. TECHNIQUE: Single view right hip. FINDINGS: Comparison 04/10/2019. FINDINGS: Stable long stem right total hip arthroplasty with cerclage wires about the proximal femur. Irregular lucency involving the right proximal femur with cortical erosion or destruction could be related osteomyelitis, fracture, or a combination of etiologies. Moderate-sized fracture fragment likely related to the lesser trochanter seen medially is stable. New complete superior lateral dislocation of the right femoral head prosthesis with regard to the acetabular prosthesis. Soft tissue swelling in the right hip and thigh with increased density in the subcutaneous tissues could be related to edema. Osteopenia. Remainder negative. Dictated by Roe Real MD @ Apr 30 2019 7:17AM Signed by Dr. Roe Real @ Apr 30 2019 7:18AM
--- NOTE | 2019-04-30 07:22 | CRLCR ---
INDICATION: Postreduction. TECHNIQUE: Single-view right hip. COMPARISON: Right hip earlier today. FINDINGS: Again demonstrated is the right total hip arthroplasty which is a long-stem femoral component and with cerclage wires about the proximal right femur. The complete superior lateral dislocation of the right femoral head prosthesis with regard to the acetabulum is stable. The remainder of the abnormalities described on exam earlier today including the lucency and cortical destruction involving the right proximal femur raising the possibility of osteomyelitis, fracture or combination of both etiologies as well as the displaced fracture fragment in the right hip medially are stable. Other findings described previously stable. Dictated by Roe Real MD @ Apr 30 2019 7:18AM Signed by Dr. Roe Real @ Apr 30 2019 7:20AM
[2019-04-30] MEDS ORDERED: Succinylcholine 200 MG/10 ML MDV IV ONE (07:29)
[2019-04-30] MEDS ORDERED: Propofol 200 MG/20 ML SDV IVPUSH ONE (07:29)
--- NOTE | 2019-04-30 09:25 | CRLCR ---
INDICATION: Postreduction. TECHNIQUE: Single view right hip. FINDINGS: The superior lateral dislocation of the right femoral head prosthesis has been reduced and the right femoral head is now normally aligned on single-view with the acetabulum. Postoperative changes of right total hip arthroplasty with long stem femoral component again noted. Cerclage wires about the right proximal femur. New deformity of the right proximal most remaining femur which now is more displaced superiorly with moderate lucency developing between it and the prosthesis consistent with a displaced fracture fragment. This is proximal to the area of lucent cortical destruction and lucency described previously which persists and could be related to underlying fracture, osteomyelitis or postoperative defect. Old fracture fragment in the right hip medially stable. Surgical clips left pelvis. Remainder negative. Dictated by Roe Real MD @ Apr 30 2019 9:20AM Signed by Dr. Roe Real @ Apr 30 2019 9:24AM
--- NOTE | 2019-04-30 09:55 | CRLCR ---
Indication: Post reduction. Technique: Right hip 1 views Comparison: Right hip radiograph 04/30/2019. Findings: Interval reduction of the previously seen right hip dislocation. The femoral prosthesis appears well positioned within the acetabular component on this single AP view. There is a revision right total hip arthroplasty with long stem femoral component and cerclage wires about the proximal femur. No radiographic evidence of loosening on this view. Stable osseous fragment about the femoral neck medially. No definite fracture is identified. Degenerative changes of visualized sacroiliac joints. Surgical clips in the pelvis. Soft tissues are unremarkable. Impression: Interval reduction of the right hip dislocation. The femoral and acetabular components appear well aligned on this single AP view. No definite fracture is identified. Dictated by Cheryl Talamantes MD @ Apr 30 2019 9:44AM Signed by Dr. Cheryl Talamantes @ Apr 30 2019 9:54AM
== END 2019-04-30 09:03 | disposition home or self-care (01) ==
LOC: JP.ED 05:27
DX: T84.020A Dislocation of internal right hip prosthesis, initial encounter (principal); K21.9 Gastro-esophageal reflux disease without esophagitis; J45.909 Unspecified asthma, uncomplicated; E66.9 Obesity, unspecified; Z88.5 Allergy status to narcotic agent; Z88.8 Allergy status to other drugs, medicaments and biological substances; Z91.041 Radiographic dye allergy status; Z91.040 Latex allergy status; Z79.82 Long term (current) use of aspirin; Z87.891 Personal history of nicotine dependence; Y79.2 Prosthetic and other implants, materials and accessory orthopedic devices associated with adverse incidents
CPT/HCPCS: 27265; 73501; 96361; 96374; 99283; J0330; J1170; J2704; J7030

== ENCOUNTER 2019-09-01 06:13 | Inpatient (IN) | payer MEDICARE, OTHER ==
[2019-09-01] MEDS ORDERED: Lactated Ringers 1,000 ML IV SCH (06:30)
[2019-09-01] MEDS ORDERED: Povidone-Iodine 10% Soln 118.25 ML Bottle ONE (06:38)
[2019-09-01] MEDS ORDERED: Nozin Nasal Sanitizer NASBOTH ONE (07:00)
[2019-09-01] MEDS ORDERED: ceFAZolin 2 GM in Premix Bag 1 BAG IV ONE (07:15)
[2019-09-01] MEDS ORDERED: Propofol 200 MG/20 ML SDV ONE ×3 (07:27→09:02)
[2019-09-01] MEDS ORDERED: fentaNYL 100 MCG/2 ML SDV ONE (07:27)
[2019-09-01] MEDS ORDERED: Midazolam 1 MG/ML 2 ML SDV ONE ×2 (07:27→08:51)
[2019-09-01] MEDS ORDERED: Lactated Ringers 1,000 ML ONE (08:43)
[2019-09-01] MEDS ORDERED: Acetaminophen/HYDROcodone 325-5 MG Tab PO PRN (10:24)
[2019-09-01] MEDS ORDERED: Magnesium Hydroxide 400 MG/5 ML Susp 30 ML Cup PO PRN (10:24)
[2019-09-01] MEDS ORDERED: Acetaminophen 325 MG Tab PO PRN (10:24)
[2019-09-01] MEDS ORDERED: ceFAZolin 1 GM in Sodium Chloride 0.9% 50 ML IV SCH (10:30)
[2019-09-01] MEDS ORDERED: Pantoprazole 40 MG Tab.CR PO PRN (10:32)
[2019-09-01] MEDS ORDERED: ALPRAZolam 0.25 MG Tab PO PRN (10:32)
[2019-09-01] MEDS ORDERED: Furosemide 40 MG Tab PO PRN (10:32)
[2019-09-01] MEDS ORDERED: Albuterol/Ipratropium 3.0-0.5 MG/3 ML Neb Soln INH PRN (10:32)
[2019-09-01] MEDS ORDERED: Albuterol 8 GM Inhaler INH PRN (10:32)
[2019-09-01] MEDS: Sodium Chloride 0.9% 1,000 ML IV SCH ×2 (12:06→20:38)
[2019-09-01] MEDS: Morphine 2 MG/ML Syringe IV PRN ×2 (12:07→15:45)
--- NOTE | 2019-09-01 13:12 | CR ---
Hip Min 1V Rt CLINICAL HISTORY: Postop FINDINGS: Patient has had previous total right hip arthroplasty. There has been additional open fixation with the lateral plate and screws IMPRESSION: Additional open fixation at a total hip arthroplasty site
[2019-09-01] MEDS: Acetaminophen/oxyCODONE 325-5 MG Tab PO PRN ×2 (13:15→17:24)
[2019-09-01] MEDS: ceFAZolin 1 GM in Premix Bag 1 BAG IV SCH ×2 (14:16→21:22)
[2019-09-01] MEDS: Ondansetron 4 MG Tab.DIS PO PRN (15:37)
[2019-09-01] MEDS: Morphine 15 MG Tab.ER PO SCH (18:32)
[2019-09-01] MEDS: Ketorolac 30 MG/ML SDV IVPUSH SCH (18:33)
[2019-09-01] MEDS: Nozin Nasal Sanitizer NASBOTH SCH (20:40)
[2019-09-01] MEDS: Zolpidem 5 MG Tab PO SCH (20:41)
[2019-09-01] MEDS: Docusate Sodium 100 MG Cap PO SCH (20:42)
[2019-09-01] MEDS: Cyclobenzaprine 10 MG Tab PO SCH (20:42)
[2019-09-01] MEDS: Fluticasone-Salmeterol 113-14 MCG Powder Inhalant INH SCH (20:42)
[2019-09-01] MEDS ORDERED: Non-Formulary Medication 1 Each (Zolpidem Tartrate [Ambien] 10 MG) PO SCH (21:00)
[2019-09-01] MEDS ORDERED: Non-Formulary Medication 1 Each (Fluticasone/Salmeterol [Advair 250-50 Diskus] 1 PUFF) INH SCH (21:00)
[2019-09-01] MEDS ORDERED: Docusate Sodium 100 MG Cap PO SCH (21:00)
[2019-09-01] MEDS ORDERED: Non-Formulary Medication 1 Each (Carisoprodol [Soma] 350 MG) PO SCH (21:00)
[2019-09-02] MEDS: Ketorolac 30 MG/ML SDV IVPUSH SCH ×3 (02:32→17:06)
[2019-09-02] MEDS: Sodium Chloride 0.9% 1,000 ML IV SCH ×2 (05:15→17:05)
[2019-09-02] MEDS: ceFAZolin 1 GM in Premix Bag 1 BAG IV SCH (05:16)
[2019-09-02] MEDS: Ondansetron 4 MG Tab.DIS PO PRN (07:09)
[2019-09-02] MEDS: Fluticasone-Salmeterol 113-14 MCG Powder Inhalant INH SCH ×2 (07:22→20:14)
[2019-09-02] MEDS: Morphine 15 MG Tab.ER PO SCH ×2 (08:38→20:20)
[2019-09-02] MEDS: Cyclobenzaprine 10 MG Tab PO SCH ×2 (08:39→20:16)
[2019-09-02] MEDS: Nozin Nasal Sanitizer NASBOTH SCH ×2 (08:40→20:13)
[2019-09-02] MEDS: Enoxaparin 30 MG/0.3 ML Syringe SUBCUT SCH (08:41)
[2019-09-02] MEDS: Docusate Sodium 100 MG Cap PO SCH ×2 (08:41→20:16)
[2019-09-02] MEDS: Aspirin 81 MG Tab.EC PO SCH (08:41)
[2019-09-02] MEDS: FLUoxetine 20 MG Cap PO SCH (08:42)
[2019-09-02] MEDS: predniSONE 5 MG Tab PO SCH (08:42)
[2019-09-02] MEDS: Metoprolol Succinate 25 MG Tab.ER PO SCH (08:43)
[2019-09-02] MEDS ORDERED: predniSONE 5 MG Tab PO SCH (09:00)
[2019-09-02] MEDS ORDERED: FLUoxetine 20 MG Cap PO SCH (09:00)
[2019-09-02] MEDS ORDERED: Enoxaparin 30 MG/0.3 ML Syringe SUBCUT SCH (09:00)
[2019-09-02] MEDS ORDERED: Metoprolol Succinate 25 MG Tab.ER PO SCH (09:00)
[2019-09-02] MEDS ORDERED: Aspirin 81 MG Tab.EC PO SCH (09:00)
[2019-09-02] MEDS: Acetaminophen/oxyCODONE 325-5 MG Tab PO PRN (13:17)
[2019-09-02] MEDS: Zolpidem 5 MG Tab PO SCH (20:20)
[2019-09-03] MEDS: Ketorolac 30 MG/ML SDV IVPUSH SCH ×2 (01:24→10:45)
[2019-09-03] MEDS: Ondansetron 4 MG Tab.DIS PO PRN (01:24)
[2019-09-03] MEDS: Fluticasone-Salmeterol 113-14 MCG Powder Inhalant INH SCH ×3 (07:18→22:28)
[2019-09-03] MEDS: Nozin Nasal Sanitizer NASBOTH SCH ×3 (08:26→22:28)
[2019-09-03] MEDS: Docusate Sodium 100 MG Cap PO SCH ×3 (08:26→22:28)
[2019-09-03] MEDS: Cyclobenzaprine 10 MG Tab PO SCH ×3 (08:27→22:28)
[2019-09-03] MEDS: Aspirin 81 MG Tab.EC PO SCH (08:27)
[2019-09-03] MEDS: predniSONE 5 MG Tab PO SCH (08:28)
[2019-09-03] MEDS: FLUoxetine 20 MG Cap PO SCH (08:28)
[2019-09-03] MEDS: Metoprolol Succinate 25 MG Tab.ER PO SCH (08:28)
[2019-09-03] MEDS: Enoxaparin 30 MG/0.3 ML Syringe SUBCUT SCH (08:30)
[2019-09-03] MEDS: Morphine 15 MG Tab.ER PO SCH ×3 (08:33→22:28)
[2019-09-03] MEDS: Acetaminophen/oxyCODONE 325-5 MG Tab PO PRN ×2 (14:30→21:57)
[2019-09-03] MEDS: Zolpidem 5 MG Tab PO SCH (21:58)
[2019-09-04] MEDS: Acetaminophen/oxyCODONE 325-5 MG Tab PO PRN ×2 (05:50→13:37)
[2019-09-04] MEDS: Fluticasone-Salmeterol 113-14 MCG Powder Inhalant INH SCH (07:48)
[2019-09-04] MEDS: Docusate Sodium 100 MG Cap PO SCH (09:55)
[2019-09-04] MEDS: Morphine 15 MG Tab.ER PO SCH (09:55)
[2019-09-04] MEDS: Nozin Nasal Sanitizer NASBOTH SCH (09:55)
[2019-09-04] MEDS: Enoxaparin 30 MG/0.3 ML Syringe SUBCUT SCH (09:56)
[2019-09-04] MEDS: FLUoxetine 20 MG Cap PO SCH (09:56)
[2019-09-04] MEDS: Cyclobenzaprine 10 MG Tab PO SCH (09:57)
[2019-09-04] MEDS: Metoprolol Succinate 25 MG Tab.ER PO SCH (09:57)
[2019-09-04] MEDS: predniSONE 5 MG Tab PO SCH (09:57)
[2019-09-04] MEDS: Aspirin 81 MG Tab.EC PO SCH (09:57)
--- NOTE | 2019-09-04 13:00 | PCM.DCSUM1 ---
Discharge Summary - Hospital Course Free Text/Narrative:: 69 year old with history of femoral neck fracture treated with hemiarthroplasty that was painful. 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 Admitted for fixation of Gr. Trochanter. Also with limb length discrepancy so the femoral was switched out for a shorter neck length. Diagnosis: Stroke: No Modified Mc Scale: No Symptoms at All Modified Mc Scale Score: 0 - Discharge Data Discharge Date: 09/04/19 Discharge Disposition: Home, W Home Health Agency 06 Condition: Good - Referral to Home Health Date of Face to Face Encounter: 09/04/19 Reason for Homebound Status: S/P right hip surgery, unable to drive, limited walking Primary Care Physician: Jose M Madden MD Skilled Need: Physical Therapy - Discharge Diagnosis/Problem(s) (1) History of open reduction and internal fixation (ORIF) procedure SNOMED Code(s): 933311109 ICD Code: Z98.890 - OTHER SPECIFIED POSTPROCEDURAL STATES Status: Acute Current Visit: Yes Problem Details: right greater trochanter nonunion (2) Status post right hip replacement SNOMED Code(s): 593565078, [id number], [id number], [id number] ICD Code: Z96.641 - PRESENCE OF RIGHT ARTIFICIAL HIP JOINT Status: Acute Current Visit: Yes Problem Details: Revise femoral head, revision of hip (3) Lower limb length difference Status: Acute Current Visit: No - Patient Summary/Data Operative Procedure(s) Performed: ORIF right greater trochanter, exchange of femoral head prosthesis Complications: none Consults: Consultations 09/01/19 10:24 Consult to Case Management/Accessioner [CONS] Routine Comment: Physician Instructions: Discharge placement post hip surgery Service(s) to be Consulted: Case Management PT Evaluation and Treatment [CONS] Routine Please Evaluate and Treat. PT Reason for Consult: Ambulation Discharge Disposition: Home w Home Health Special Instructions: posterior hip precautions, WBAT This query below is only for informational purposes and is not editable. PT Evaluation and Treatment [CONS] Routine Please Evaluate and Treat. PT Reason for Consult: Post op Ortho Surgery Hip Pending Discharge: Yes, 2- -3 days Special Instructions: Schedule first outpatient P.T. appointment 3 - 5 days post discharge This query below is only for informational purposes and is not editable. Hospital Course: Tolerated procedure well with the exception of nausea post op. Nausea fairly well controlled with Zofran. Pain was limited activity initially and medications were adjusted. She was able to tolerated po and progressed with PT. Was able to achieve independence with transfer well enough to go home with Home Health POD #3. Dressing removed prior to discharge, incision looked very good. - Patient Instructions Diet: Usual Diet as Tolerated Activity: Apply Ice, As Tolerated, Full Weight Bearing Activity, Other: posterior hip precautions Driving: Do Not Drive Showering/Bathing: May Shower Notify Provider of: Fever, Increased Pain, Swelling and Redness, Drainage, Nausea and/or Vomiting - Discharge Plan *PRESCRIPTION DRUG MONITORING PROGRAM REVIEWED*: No *COPY OF PRESCRIPTION DRUG MONITORING REPORT IN PATIENT ALEN: No Prescriptions/Med Rec: Ondansetron HCl [Zofran] 4 mg PO Q6HR PRN #15 tablet PRN Reason: Nausea/Vomiting oxyCODONE HCl/Acetaminophen [Percocet 5-325 mg Tablet] 2 each PO Q6HR PRN #50 tablet PRN Reason: Pain Morphine [MS Contin] 15 mg PO BID 7 Days #14 tab.er Home Medications: Home Meds ALPRAZolam [Xanax] 0.25 mg PO TID PRN 01/07/18 [History] Acetaminophen/HYDROcodone [[place] 325-5 MG] 1 tab PO Q6H 01/07/18 [History] Albuterol Sulfate [Proair Hfa] 2 inhalation IH Q4H PRN 01/07/18 [History] Aspirin [Halfprin] 81 mg PO DAILY 01/07/18 [History] FLUoxetine HCl [Prozac] 40 mg PO DAILY 01/07/18 [History] Furosemide [Lasix] 40 mg PO DAILY PRN 01/07/18 [History] Metoprolol Succinate [Toprol XL] 25 mg PO DAILY 01/07/18 [History] Zolpidem Tartrate [Ambien] 10 mg PO BEDTIME 01/07/18 [History] carisoprodoL [Soma] 350 mg PO BID 01/07/18 [History] predniSONE [Prednisone] 5 mg PO DAILY 01/07/18 [History] Esomeprazole Magnesium [Nexium] 20 mg PO DAILY PRN 09/12/18 [History] Albuterol/Ipratropium [DuoNeb 3.0-0.5 MG/3 ML] 3 ml INH Q4HR PRN 10/24/18 [ History] Fluticasone/Salmeterol [Advair 250-50 Diskus] 1 puff INH BID 10/24/18 [History] Ondansetron HCl [Zofran] 4 mg PO Q6HR PRN #12 tablet 05/08/19 [Rx] Morphine [MS Contin] 15 mg PO BID 7 Days #14 tab.er 09/04/19 [Rx] Ondansetron HCl [Zofran] 4 mg PO Q6HR PRN #15 tablet 09/04/19 [Rx] oxyCODONE HCl/Acetaminophen [Percocet 5-325 mg Tablet] 2 each PO Q6HR PRN #50 tablet 09/04/19 [Rx] Oxygen Therapy Mode: Room Air Referrals: Preston Telles MD [Physician] - 09/16/19 10:30 am (Please arrive 15 minutes early to register for your appointment.) - Discharge Summary/Plan Comment DC Time >30 min.: Yes - Patient Data Vitals - Most Recent: Last Vital Signs Temp 37.1 C 09/04/19 11:00 Pulse 100 09/04/19 11:00 Resp 18 09/04/19 11:00 BP 117/68 09/04/19 11:00 Pulse Ox 93 L 09/04/19 11:00 Weight - Most Recent: 90.492 kg I&O - Last 24 hours: Intake & Output 09/03/19 09/04/19 09/04/19 22:59 06:59 14:59 Intake Total 550 100 240 Output Total 300 Balance 250 100 240 Med Orders - Current: Current Medications Acetaminophen (Tylenol) 650 mg PO Q4H PRN PRN Reason: Pain/Fever Hydrocodone Bitart/Acetaminophen ([place] 325-5 Mg) 1 tab PO Q3H PRN PRN Reason: Pain (mild 1-3) Albuterol (Ventolin Hfa) 0 gm INH Q4H PRN PRN Reason: Shortness of Breath Albuterol/Ipratropium (Duoneb 3.0-0.5 Mg/3 Ml) 3 ml INH Q4H PRN PRN Reason: Shortness of Breath Alprazolam (Xanax) 0.25 mg PO TID PRN PRN Reason: Anxiety Aspirin (Halfprin) 81 mg PO DAILY [facility] Last Admin: 09/04/19 09:57 Dose: 81 mg Bandage/Support Products ( Nasal Nuclear Physician) 1 applic NASBOTH BID [facility] Stop: 09/08/19 21:01 Last Admin: 09/04/19 09:55 Dose: 1 applic Cyclobenzaprine HCl (Flexeril) 10 mg PO BID [facility] Last Admin: 09/04/19 09:57 Dose: 10 mg Docusate Sodium (Colace) 100 mg PO BID [facility] Last Admin: 09/04/19 09:55 Dose: 100 mg Enoxaparin Sodium (Lovenox) 30 mg SUBCUT DAILY [facility] Last Admin: 09/04/19 09:56 Dose: 30 mg Fluoxetine HCl (Prozac) 40 mg PO DAILY [facility] Last Admin: 09/04/19 09:56 Dose: 40 mg Furosemide (Lasix) 40 mg PO DAILY PRN PRN Reason: Edema Magnesium Hydroxide (Milk Of Magnesia) 30 ml PO Q6H PRN PRN Reason: Stool Softener Metoprolol Succinate (Toprol Xl) 25 mg PO DAILY [facility] Last Admin: 09/04/19 09:57 Dose: 25 mg Morphine Sulfate (Morphine) 2 mg IV Q1H PRN PRN Reason: Breakthrough Pain Last Admin: 09/01/19 15:45 Dose: 2 mg Morphine Sulfate (Ms Contin) 15 mg PO BID [facility] Last Admin: 09/04/19 09:55 Dose: 15 mg Ondansetron HCl (Zofran Odt) 4 mg PO Q6H PRN PRN Reason: Nausea/Vomiting Last Admin: 09/03/19 01:24 Dose: 4 mg Oxycodone/Acetaminophen (Percocet 325-5 Mg) 1 - 2 tab PO Q4H PRN PRN Reason: Pain (moderate 4-6) Last Admin: 09/04/19 05:50 Dose: 2 tab Pantoprazole Sodium (Protonix) 40 mg PO DAILY PRN PRN Reason: Heartburn Last Admin: 09/02/19 08:39 Dose: 40 mg Prednisone (Prednisone) 5 mg PO DAILY [facility] Last Admin: 09/04/19 09:57 Dose: 5 mg Fluticasone/Salmeterol (Fluticasone-Salmeterol 113-14 Mcg Powder Inh) 1 puff INH BIDRT [facility] Last Admin: 09/04/19 07:48 Dose: 1 puff Zolpidem Tartrate (Ambien) 10 mg PO BEDTIME [facility] Last Admin: 09/03/19 21:58 Dose: 10 mg Discontinued Medications Aspirin (Halfprin) 81 mg PO DAILY [facility] Bandage/Support Products ( Nasal Nuclear Physician) 1 applic NASBOTH ONETIME ONE Stop: 09/01/19 07:01 Last Admin: 09/01/19 06:59 Dose: 1 applic Docusate Sodium (Colace) 100 mg PO BID [facility] Enoxaparin Sodium (Lovenox) 30 mg SUBCUT DAILY [facility] Fentanyl (Sublimaze) Confirm Administered Dose 100 mcg .ROUTE .STK-MED ONE Stop: 09/01/19 07:28 Fluoxetine HCl (Prozac) 40 mg PO DAILY [facility] Cefazolin Sodium/Dextrose 2 gm (/ Premix) 50 mls @ 100 mls/hr IV ONETIME ONE Stop: 09/01/19 07:44 Last Admin: 09/01/19 07:57 Dose: 100 mls/hr Lactated Ringer's (Ringers, Lactated) 1,000 mls @ 75 mls/hr IV ASDIRECTED [facility] Last Admin: 09/01/19 07:01 Dose: 75 mls/hr Lactated Ringer's (Ringers, Lactated) Confirm Administered Dose 1,000 mls @ as directed .ROUTE .STK-MED ONE Stop: 09/01/19 08:44 Cefazolin Sodium 1 gm/ Sodium (Chloride) 50 mls @ 200 mls/hr IV Q8H [facility] Stop: 09/02/19 02:44 Last Admin: 09/01/19 15:22 Dose: Not Given Sodium Chloride (Normal Saline) 1,000 mls @ 125 mls/hr IV ASDIRECTED [facility] Last Admin: 09/02/19 17:05 Dose: 125 mls/hr Cefazolin Sodium/Dextrose 1 gm (/ Premix) 50 mls @ 100 mls/hr IV Q8H [facility] Stop: 09/02/19 06:29 Last Admin: 09/02/19 05:16 Dose: 100 mls/hr Ketorolac Tromethamine (Toradol) 30 mg IVPUSH Q8H [facility] Stop: 09/03/19 10:01 Last Admin: 09/03/19 10:45 Dose: 30 mg Metoprolol Succinate (Toprol Xl) 25 mg PO DAILY [facility] Midazolam HCl (Versed 1 Mg/Ml) Confirm Administered Dose 2 mg .ROUTE .STK-MED ONE Stop: 09/01/19 07:28 Midazolam HCl (Versed 1 Mg/Ml) Confirm Administered Dose 2 mg .ROUTE .STK-MED ONE Stop: 09/01/19 08:52 Non-Formulary Medication (Carisoprodol [Soma]) 350 mg PO BID [facility] Non-Formulary Medication (Fluticasone/Salmeterol [Advair 250-50 Diskus]) 1 puff INH BID [facility] Non-Formulary Medication (Zolpidem Tartrate [Ambien]) 10 mg PO BEDTIME [facility] Povidone Iodine (Betadine 10% Soln) Confirm Administered Dose 1 ml .ROUTE .STK- MED ONE Stop: 09/01/19 06:39 Prednisone (Prednisone) 5 mg PO DAILY [facility] Propofol (Diprivan 20 Ml) Confirm Administered Dose 200 mg .ROUTE .STK-MED ONE Stop: 09/01/19 07:28 Propofol (Diprivan 20 Ml) Confirm Administered Dose 200 mg .ROUTE .STK-MED ONE Stop: 09/01/19 07:29 Propofol (Diprivan 20 Ml) Confirm Administered Dose 200 mg .ROUTE .STK-MED ONE Stop: 09/01/19 09:03
--- NOTE | 2019-09-10 18:14 | OR ---
DATE OF PROCEDURE: 09/01/2019 SURGEON: Preston Telles MD PREOPERATIVE DIAGNOSES: 1. Nonunion, right greater trochanter. 2. Limb length discrepancy. POSTOPERATIVE DIAGNOSES: 1. Nonunion, right greater trochanter. 2. Limb length discrepancy. PROCEDURES: 1. Open reduction and internal fixation of right greater trochanter. 2. Exchange of prosthetic femoral head. ANESTHESIA: Spinal with sedation. INDICATIONS: Saba is a 69-year-old female who had recently undergone a revision right total hip arthroplasty. She has developed a nonunion of the right greater trochanter resulting in persistent pain, weakness, and a sensation of instability in the right leg. She also has a limb length discrepancy with the right leg longer than the left. She now presents for fixation of the greater trochanter and downsizing of the femoral neck length. Risks, benefits, potential complications of the procedure were discussed. PROCEDURE IN DETAIL: After adequate anesthesia was obtained, the patient was placed in a lateral decubitus position and secured with a hip positioner. The right hip and leg were then prepped and draped in a sterile fashion. Previous incision was utilized and carried down through the subcutaneous tissues and hemostasis was obtained with electrocautery. Tensor fascia was divided and the Charnley retractor was placed. Greater trochanter was identified and this showed that the fragment was mobile. Using combination of rongeur and curettes, nonunion site was debrided back to bone. Proximal femoral bone over the lateral aspect was cleared of soft tissue. The distal portion of the greater trochanteric fragment was also cleared of soft tissue. Fragment was mobilized to allow the greater trochanter to be brought slightly more distal overlapping the femoral bone around the prosthesis. The capsule was then divided and the hip was dislocated. Previous +7 neck length femoral head was removed. A trial 0 neck length was then placed and the hip was reduced. Towel clips were placed on the greater trochanter, which was then mobilized slightly more lateral and distal to its retracted position allowing reduction over the prosthetic stem and the proximal femur. A Farshad trochanteric fixation cable plate was selected. This was tapped into the greater trochanter and used to further reduce the trochanter fragment. Cerclage wires were then passed through the plate and around the proximal femur on the distal portion of the plate and around the neck of the prosthesis on the more proximal portion of the plate. Holding the fragment in a reduced position, the most distal cables were then tensioned. The tension was locked in place and this then continued proximally. Once this had been done for 3 of the cables, the leg was taken through range of motion and found to be stable with the 0 neck length and significantly improved limb length discrepancy. Trial was then removed. Cup was irrigated and the +0 neck length femoral head was tapped onto the stem and reduced. Final cable was then placed in the proximal portion of the plate and around the femoral stem and neck. The distal cables were retensioned and then the screw was tightened crimping the cable in place and the cable was cut. This proceeded from distal to proximal. Excellent fixation was obtained with very good stability of the fragment. Hip was irrigated and then closed with a #2 Ethibond in the tensor fascia and IT band. Skin was closed with 2-0 Vicryl and a running 3-0 Monocryl. Steri-Strips were applied and a sterile dressing was placed. The patient tolerated the procedure very well. There were no complications. She was taken from the operating room in stable condition. Preston Telles MD /[id number] [place]
== END 2019-09-04 12:55 | disposition home health service (06) | DRG 468 ==
LOC: JP.SDS 06:13 → JP.SDSSCHI 06:13 → EDSTATUS 08:30 → JP.MS 10:24
PROVIDERS: ADMIT Specialist; ATTEND Specialist
PROC: 0SRR0JZ Replacement of Right Hip Joint, Femoral Surface with Synthetic Substitute, Open Approach (ICD-10-PCS; principal; 2019-09-01)
PROC: 0SPR0JZ Removal of Synthetic Substitute from Right Hip Joint, Femoral Surface, Open Approach (ICD-10-PCS; 2019-09-01)
DX: S72.111K Displaced fracture of greater trochanter of right femur, subsequent encounter for closed fracture with nonunion (principal); M21.751 Unequal limb length (acquired), right femur; Z98.890 Other specified postprocedural states
CPT/HCPCS: 36415; 73501-26-RT; 73501-RT; 80053; 85025; 85027; 86850; 86900; 86901; 94640; 94762; 97110-GP; 97116-GP; 97162-GP; 97530-GP; 97535-GP; A9270-GY; C1713; C1776; J0690; J1650; J1885; J2250; J2270; J2704; J3010; J7030; J7120

== ENCOUNTER 2019-09-14 21:14 | Emergency (ER) | payer MEDICARE ==
[2019-09-14] MEDS ORDERED: HYDROmorphone 0.5 MG/0.5 ML Syringe IVPUSH ONE (21:28)
[2019-09-14] MEDS ORDERED: HYDROmorphone 1 MG/ML Syringe IVPUSH ONE (22:19)
[2019-09-14] MEDS ORDERED: Propofol 200 MG/20 ML SDV IV ONE (23:05)
[2019-09-14] MEDS ORDERED: Succinylcholine 200 MG/10 ML MDV IV ONE (23:06)
[2019-09-14] MEDS ORDERED: Succinylcholine 200 MG/10 ML MDV ONE (23:09)
--- NOTE | 2019-09-14 23:52 | EDM.PDOC ---
ED HPI GENERAL MEDICAL PROBLEM - General Chief Complaint: Lower Extremity Injury/Pain Stated Complaint: MEDICAL [facility] Time Seen by Provider: 09/14/19 21:25 Source of Information: Reports: Patient, Family History Limitations: Reports: No Limitations - History of Present Illness INITIAL COMMENTS - FREE TEXT/NARRATIVE: pt did a twisting motion and she then developed severe pain. She was very uncomfortable on arrival. She had received fentyl in the ambulance. She had a hip revision surgery about 10 days ago to try to prevent dislocations. 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 Right Hip Pain Score (Numeric/FACES): 9 - Related Data Allergies Allergy/AdvReac Type Severity Reaction Status Date / Time Iodinated Contrast Media Allergy Severe Difficulty Verified 09/14/19 21:37 [Iodinated Contrast Media - Breathing IV Dye] latex Allergy Edema Verified 09/14/19 21:37 triamcinolone Allergy Rash Verified 09/14/19 21:37 tramadol AdvReac Confusion Verified 09/14/19 21:37 Home Meds: Home Meds ALPRAZolam [Xanax] 0.25 mg PO TID PRN 01/07/18 [History] Acetaminophen/HYDROcodone [[place] 325-5 MG] 1 tab PO Q6H 01/07/18 [History] Albuterol Sulfate [Proair Hfa] 2 inhalation IH Q4H PRN 01/07/18 [History] Aspirin [Halfprin] 81 mg PO DAILY 01/07/18 [History] FLUoxetine HCl [Prozac] 40 mg PO DAILY 01/07/18 [History] Furosemide [Lasix] 40 mg PO DAILY PRN 01/07/18 [History] Metoprolol Succinate [Toprol XL] 25 mg PO DAILY 01/07/18 [History] Zolpidem Tartrate [Ambien] 10 mg PO BEDTIME 01/07/18 [History] carisoprodoL [Soma] 350 mg PO BID 01/07/18 [History] predniSONE [Prednisone] 5 mg PO DAILY 01/07/18 [History] Esomeprazole Magnesium [Nexium] 20 mg PO DAILY PRN 09/12/18 [History] Albuterol/Ipratropium [DuoNeb 3.0-0.5 MG/3 ML] 3 ml INH Q4HR PRN 10/24/18 [ History] Fluticasone/Salmeterol [Advair 250-50 Diskus] 1 puff INH BID 10/24/18 [History] Morphine [MS Contin] 15 mg PO BID 7 Days #14 tab.er 09/04/19 [Rx] Ondansetron HCl [Zofran] 4 mg PO Q6HR PRN #15 tablet 09/04/19 [Rx] oxyCODONE HCl/Acetaminophen [Percocet 5-325 mg Tablet] 2 each PO Q6HR PRN #50 tablet 09/04/19 [Rx] Past Medical History HEENT History: Reports: Allergic Rhinitis, Impaired Vision, Other (See Below) Other HEENT History: wears reading glasses Cardiovascular History: Reports: Arrhythmia, Heart Failure, Heart Murmur, Other (See Below) Other Cardiovascular History: mitral valve prolapse; Respiratory History: Reports: Asthma, Bronchitis, Recurrent, COPD, PE, Pneumonia , Recurrent, Sleep Apnea Gastrointestinal History: Reports: Bowel Obstruction, Cholelithiasis, Diverticulosis, GERD, Hiatal Hernia, Other (See Below) Other Gastrointestinal History: "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" Genitourinary History: Reports: None TONGER History: Reports: Dysfunctional Uterine Bleeding, Musculoskeletal History: Reports: Fracture Other Musculoskeletal History: s/p R hip revision 04/07/19 Neurological History: Reports: Migraines Psychiatric History: Reports: Addiction, Anxiety, Depression Other Psychiatric History: No alcohol since 1982; history of alcoholism Endocrine/Metabolic History: Reports: Obesity/BMI 30+, Other (See Below) Other Endocrine/Metabolic History: thyroid goiter Hematologic History: Reports: Anticoagulation Therapy Immunologic History: Reports: Immunosuppression, Other (See Below) Other Immunologic History: Lupus Oncologic (Cancer) History: Reports: None Dermatologic History: Reports: Other (See Below) Other Dermatologic History: "rashes with autoimmune disorder" - Infectious Disease History Infectious Disease History: Reports: Chicken Pox - Past Surgical History Cardiovascular Surgical History: Reports: None GI Surgical History: Reports: Cholecystectomy, Colonoscopy, EGD, Other (See Below) Other GI Surgeries/Procedures: colon resection in 1996 for diverticulitis, removal of 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 in 2007 Female Surgical History: Reports: Breast Biopsy, Hysterectomy, Salpingo- Oophorectomy Endocrine Surgical History: Reports: None Musculoskeletal Surgical History: Reports: Hip Replacement, Joint Replacement Other Musculoskeletal Surgeries/Procedures:: left ankle surgery. right hip and femur surgery Social & Family History - Family History Family Medical History: Noncontributory - Tobacco Use Smoking Status *Q: Former Smoker Used Tobacco, but Quit: Yes Month/Year Tobacco Last Used: 30 years ago - Caffeine Use Caffeine Use: Reports: Coffee Caffeine Use Comment: one cup of coffee per day - Recreational Drug Use Recreational Drug Use: No Review of Systems - Review of Systems Review Of Systems: See Below Constitutional: Reports: No Symptoms Eyes: Reports: No Symptoms Ears: Reports: No Symptoms Nose: Reports: No Symptoms Mouth/Throat: Reports: No Symptoms Respiratory: Reports: No Symptoms Cardiovascular: Reports: No Symptoms GI/Abdominal: Reports: No Symptoms Genitourinary: Reports: No Symptoms Musculoskeletal: Reports: Other (pain in the rt hip area. ) ED EXAM, GENERAL - Physical Exam Exam: See Below Free Text/Narrative:: pt arrived with severe pain in the rt hip. She acted galen she had dislocated the hip. Xrays did verify that. Exam Limited By: No Limitations General Appearance: Alert, Anxious, Moderate Distress Ears: Normal TMs Nose: Normal Inspection Throat/Mouth: Normal Inspection Head: Atraumatic Neck: Normal Inspection Respiratory/Chest: No Respiratory Distress Cardiovascular: Regular Rate, Rhythm GI/Abdominal: Soft, Non-Tender (Female) Exam: Deferred Rectal (Female) Exam: Deferred Back Exam: Normal Inspection Extremities: Other ( rt hip is very uncomfortable with movement of the leg. ) Neurological: Normal Cognition Course - Vital Signs Last Recorded V/S: Last Vital Signs Temp 35.7 C L 09/14/19 21:44 Pulse 87 09/14/19 22:39 Resp 16 09/14/19 22:39 BP 134/78 09/14/19 22:39 Pulse Ox 96 09/14/19 22:39 - Orders/Labs/Meds Orders: Active Orders 24 hr Category Date Time Status Hip Min 1V Rt [CR] Stat Exams 09/14/19 23:13 Taken Hip Min 2V or 3V w Pelvis Rt [CR] Stat Exams 09/14/19 21:28 Taken Meds: Medications Discontinued Medications Generic Name Dose Route Start Last Admin Trade Name Freq PRN Reason Stop Dose Admin Hydromorphone HCl 0.5 mg 09/14/19 21:28 09/14/19 21:34 Dilaudid IVPUSH 09/14/19 21:29 0.5 mg ONETIME ONE Administration Hydromorphone HCl 1 mg 09/14/19 22:19 09/14/19 22:30 Dilaudid IVPUSH 09/14/19 22:20 1 mg ONETIME ONE Administration Succinylcholine Chloride Confirm 09/14/19 23:09 Quelicin Administered 09/14/19 23:10 Dose 200 mg .ROUTE .STK-MED ONE - Re-Assessments/Exams Free Text/Narrative Re-Assessment/Exam: 09/14/19 23:57 pt was given anesthia with a muscle relaxer. With some difficulty the hip was pulled back into place. She was much more comfoetable after that. Departure - Departure Time of Disposition: 23:45 Disposition: Home, Self-Care 01 Condition: Fair Clinical Impression: Dislocation of right hip - Discharge Information Referrals: PCP,None [Primary Care Provider] - Forms: ED Department Discharge Care Plan Goals: watch any posterior motion of the hip, use pain meds as needed for discomfort. keep appt with Dr Uzma chang if problems. Sepsis Event Note - Evaluation Sepsis Screening Result: No Definite Risk - Focused Exam Vital Signs: Vital Signs Temp Pulse Resp BP Pulse Ox 09/14/19 22:39 87 16 134/78 96 09/14/19 21:44 35.7 C L 94 16 151/87 H 92 L 09/14/19 21:21 35.7 C L 94 16 151/87 H 92 L Date Exam was Performed: 09/14/19 Time Exam was Performed: 23:53 - My Orders Last 24 Hours: My Active Orders 09/14/19 21:28 Hip Min 2V or 3V w Pelvis Rt [CR] Stat 09/14/19 23:13 Hip Min 1V Rt [CR] Stat - Assessment/Plan Last 24 Hours: My Active Orders 09/14/19 21:28 Hip Min 2V or 3V w Pelvis Rt [CR] Stat 09/14/19 23:13 Hip Min 1V Rt [CR] Stat
--- NOTE | 2019-09-15 09:24 | CR ---
Hip Min 2V or 3V w Pelvis Rt, Hip Min 1V Rt CLINICAL HISTORY: Injury, right hip pain FINDINGS: Patient has a total hip arthroplasty. It is dislocated with the femoral component to the being superior to the acetabulum. No bony fracture seen IMPRESSION: Superior dislocation of the right hip prosthesis Rt, Hip Min 1V Rt CLINICAL HISTORY: Postreduction FINDINGS: The hip prosthesis dislocation has been reduced. No fracture is identified IMPRESSION: Reduction hip dislocation
== END 2019-09-15 00:05 | disposition home or self-care (01) ==
LOC: JP.ED 21:14
DX: S73.004A Unspecified dislocation of right hip, initial encounter (principal); Z88.8 Allergy status to other drugs, medicaments and biological substances; Z87.891 Personal history of nicotine dependence; Z91.040 Latex allergy status; Z91.041 Radiographic dye allergy status
CPT/HCPCS: 27265; 73501; 73502; 96374; 96376; 99284; J0330; J1170; J2704

== ENCOUNTER 2019-12-18 06:54 | Emergency (ER) | payer MEDICARE ==
--- NOTE | 2019-12-18 07:23 | EDM.PDOC ---
ED HPI GENERAL MEDICAL PROBLEM - General Chief Complaint: Lower Extremity Injury/Pain Stated Complaint: DISLOCATED HIP/VIA AM Time Seen by Provider: 12/18/19 07:05 Source of Information: Reports: Patient, EMS History Limitations: Reports: No Limitations - History of Present Illness INITIAL COMMENTS - FREE TEXT/NARRATIVE: rolled over in bed and felt hip pop out. 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 Has had this happen recurrently in past. Onset: Today Duration: Hour(s): (1) Location: Reports: Lower Extremity, Right Quality: Reports: Sharp Worsens with: Reports: Movement Associated Symptoms: Reports: No Other Symptoms Right Hip Pain Score (Numeric/FACES): 9 - Related Data Allergies Allergy/AdvReac Type Severity Reaction Status Date / Time Iodinated Contrast Media Allergy Severe Difficulty Verified 12/18/19 07:03 [Iodinated Contrast Media - Breathing IV Dye] latex Allergy Edema Verified 12/18/19 07:03 triamcinolone Allergy Rash Verified 12/18/19 07:03 tramadol AdvReac Confusion Verified 12/18/19 07:03 Home Meds: Home Meds ALPRAZolam [Xanax] 0.25 mg PO TID PRN 01/07/18 [History] Acetaminophen/HYDROcodone [[place] 325-5 MG] 1 tab PO Q6H 01/07/18 [History] Albuterol Sulfate [Proair Hfa] 2 inhalation IH Q4H PRN 01/07/18 [History] Aspirin [Halfprin] 81 mg PO DAILY 01/07/18 [History] FLUoxetine HCl [Prozac] 40 mg PO DAILY 01/07/18 [History] Furosemide [Lasix] 40 mg PO DAILY PRN 01/07/18 [History] Metoprolol Succinate [Toprol XL] 25 mg PO DAILY 01/07/18 [History] Zolpidem Tartrate [Ambien] 10 mg PO BEDTIME 01/07/18 [History] carisoprodoL [Soma] 350 mg PO BID 01/07/18 [History] predniSONE [Prednisone] 5 mg PO DAILY 01/07/18 [History] Esomeprazole Magnesium [Nexium] 20 mg PO DAILY PRN 09/12/18 [History] Albuterol/Ipratropium [DuoNeb 3.0-0.5 MG/3 ML] 3 ml INH Q4HR PRN 10/24/18 [History] Fluticasone Propion/Salmeterol [Advair 250-50 Diskus] 1 puff INH BID 10/24/18 [History] ondansetron HCL [Zofran] 4 mg PO Q6HR PRN #20 tablet 11/18/19 [Rx] Past Medical History HEENT History: Reports: Allergic Rhinitis, Impaired Vision, Other (See Below) Other HEENT History: wears reading glasses Cardiovascular History: Reports: Arrhythmia, Heart Failure, Heart Murmur, Other (See Below) Other Cardiovascular History: mitral valve prolapse; Respiratory History: Reports: Asthma, Bronchitis, Recurrent, COPD, PE, Pneumonia, Recurrent, Sleep Apnea Gastrointestinal History: Reports: Bowel Obstruction, Cholelithiasis, Diverticulosis, GERD, Hiatal Hernia, Other (See Below) Other Gastrointestinal History: "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" Genitourinary History: Reports: None 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 R hip disolcation 09/14/19 Neurological History: Reports: Migraines Psychiatric History: Reports: Addiction, Anxiety, Depression Other Psychiatric History: No alcohol since 1982; history of alcoholism Endocrine/Metabolic History: Reports: Obesity/BMI 30+, Other (See Below) Other Endocrine/Metabolic History: thyroid goiter Hematologic History: Reports: Anticoagulation Therapy Immunologic History: Reports: Immunosuppression, Other (See Below) Other Immunologic History: Lupus Oncologic (Cancer) History: Reports: None Dermatologic History: Reports: Other (See Below) Other Dermatologic History: "rashes with autoimmune disorder" - Infectious Disease History Infectious Disease History: Reports: Chicken Pox - Past Surgical History Head Surgeries/Procedures: Reports: None Cardiovascular Surgical History: Reports: None GI Surgical History: Reports: Cholecystectomy, Colonoscopy, EGD, Other (See Below) Other GI Surgeries/Procedures: colon resection in 1996 for diverticulitis, removal of 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 in 2007 Female Surgical History: Reports: Breast Biopsy, Hysterectomy, Salpingo- Oophorectomy Endocrine Surgical History: Reports: None Musculoskeletal Surgical History: Reports: Hip Replacement, Joint Replacement Other Musculoskeletal Surgeries/Procedures:: left ankle surgery. right hip and femur surgery Social & Family History - Family History Family Medical History: Noncontributory - Tobacco Use Smoking Status *Q: Never Smoker - Caffeine Use Caffeine Use: Reports: Coffee, Soda Caffeine Use Comment: one cup of coffee per day - Recreational Drug Use Recreational Drug Use: No Review of Systems - Review of Systems Review Of Systems: See Below Constitutional: Reports: No Symptoms Eyes: Reports: No Symptoms Nose: Reports: No Symptoms Respiratory: Reports: No Symptoms Cardiovascular: Reports: No Symptoms Musculoskeletal: Reports: Joint Pain (R hip) Skin: Reports: No Symptoms ED EXAM, GENERAL - Physical Exam Exam: See Below Exam Limited By: No Limitations General Appearance: Alert Head: Atraumatic, Normocephalic Neck: Normal Inspection, Supple Respiratory/Chest: No Respiratory Distress, Lungs Clear Cardiovascular: Normal Peripheral Pulses, Regular Rate, Rhythm Peripheral Pulses: 1+: Dorsalis Pedis (R) GI/Abdominal: Soft, Non-Tender Extremities: Other (Right lower extremity shortened and internally rotated) Neurological: Alert, Oriented Psychiatric: Normal Affect, Normal Mood Skin Exam: Warm, Dry, Intact ED TRAUMA EXTREMITY PROCEDURES - Joint Reduction Right Hip Sedation: Other (General anesthesia with propofol) Pre-Procedure NV Status: Normal Post-Procedure NV Status: Normal Number of Attempts: 2 Post-Reduction Imaging: Unacceptably Reduced, No Fracture Seen Joint Reduction Complications: No Progress/Comments: We will consult on-call orthopedist EKG INTERPRETATION EKG Date: 12/18/19 Time: 07:30 Rhythm: NSR Rate (Beats/Min): 87 P-Wave: Present (Occasional PAC) Course - Vital Signs Text/Narrative:: After initial 2 attempts at reduction by myself were unsuccessful, Dr. Telles was able to manipulate the right lower extremity and reduce the hip. Po streduction films show hip in good location. Patient has excellent dorsalis pedis pulse and foot temperature and sensation post procedure. Last Recorded V/S: Last Vital Signs Temp 36.4 C 12/18/19 07:01 Pulse 88 12/18/19 07:32 Resp 9 L 12/18/19 07:32 BP 141/85 H 12/18/19 07:32 Pulse Ox 97 12/18/19 07:32 - Orders/Labs/Meds Orders: Active Orders 24 hr Category Date Time Status EKG Documentation Completion [RC] ASDIRECTED Care 12/18/19 07:12 Active Chest 1V Frontal [CR] Stat Exams 12/18/19 07:13 Taken Hip Min 1V Rt [CR] Stat Exams 12/18/19 07:00 Taken Hip Min 1V Rt [CR] Stat Exams 12/18/19 07:53 Ordered COMPREHENSIVE METABOLIC PN,CMP [CHEM] Urgent Lab 12/18/19 07:25 Received Sodium Chloride 0.9% [Normal Saline] 1,000 ml Med 12/18/19 07:15 Active IV ASDIRECTED EKG 12 Lead [EK] Urgent Ther 12/18/19 07:11 Ordered Medication Orders Sodium Chloride (Normal Saline) 1,000 mls @ 500 mls/hr IV ASDIRECTED LENORA Last Admin: 12/18/19 07:29 Dose: 500 mls/hr Documented by: LINDA Labs: Laboratory Tests 12/18/19 Range/Units 07:25 WBC 7.2 (4.5-11.0) K/uL RBC 3.94 (3.30-5.50) M/uL Hgb 12.5 D (12.0-15.0) g/dL Hct 38.9 (36.0-48.0) % MCV 99 H (80-98) fL MCH 32 H (27-31) pg MCHC 32 (32-36) % Plt Count 285 (150-400) K/uL Meds: Medications Generic Name Dose Route Start Last Admin Trade Name Freq PRN Reason Stop Dose Admin Sodium Chloride 1,000 mls @ 500 mls/hr 12/18/19 07:15 12/18/19 07:29 Normal Saline IV 500 mls/hr ASDIRECTED LENORA Administration Discontinued Medications Generic Name Dose Route Start Last Admin Trade Name Freq PRN Reason Stop Dose Admin Hydromorphone HCl 0.5 mg 12/18/19 07:13 12/18/19 07:26 Dilaudid IVPUSH 12/18/19 07:14 0.5 mg ONETIME ONE Administration Ondansetron HCl 4 mg 12/18/19 07:13 12/18/19 07:26 Zofran IVPUSH 12/18/19 07:14 4 mg ONETIME ONE Administration Departure - Departure Time of Disposition: 08:25 Disposition: Home, Self-Care 01 Condition: Good Clinical Impression: Closed traumatic dislocation of hip - Discharge Information Instructions: Hip Dislocation, Pain Medicine Instructions, [id number] Referrals: Jose M Madden MD [Primary Care Provider] - Forms: ED Department Discharge Additional Instructions: Right leg outward. Do not move right leg inward or cross her legs. Follow-up with . Sepsis Event Note (ED) - Evaluation Sepsis Screening Result: No Definite Risk - Focused Exam Vital Signs: Vital Signs Temp Pulse Resp BP Pulse Ox 12/18/19 07:32 88 9 L 141/85 H 97 12/18/19 07:01 36.4 C 95 14 143/103 H 99 - My Orders Last 24 Hours: My Active Orders 12/18/19 07:00 Hip Min 1V Rt [CR] Stat 12/18/19 07:11 EKG 12 Lead [EK] Urgent 12/18/19 07:12 EKG Documentation Completion [RC] ASDIRECTED 12/18/19 07:13 Chest 1V Frontal [CR] Stat 12/18/19 07:15 Sodium Chloride 0.9% [Normal Saline] 1,000 ml IV ASDIRECTED 12/18/19 07:25 COMPREHENSIVE METABOLIC PN,CMP [CHEM] Urgent 12/18/19 07:53 Hip Min 1V Rt [CR] Stat - Assessment/Plan Last 24 Hours: My Active Orders 12/18/19 07:00 Hip Min 1V Rt [CR] Stat 12/18/19 07:11 EKG 12 Lead [EK] Urgent 12/18/19 07:12 EKG Documentation Completion [RC] ASDIRECTED 12/18/19 07:13 Chest 1V Frontal [CR] Stat 12/18/19 07:15 Sodium Chloride 0.9% [Normal Saline] 1,000 ml IV ASDIRECTED 12/18/19 07:25 COMPREHENSIVE METABOLIC PN,CMP [CHEM] Urgent 12/18/19 07:53 Hip Min 1V Rt [CR] Stat
[2019-12-18] MEDS: Ondansetron 4 MG/2 ML SDV IVPUSH ONE (07:26)
[2019-12-18] MEDS: HYDROmorphone 0.5 MG/0.5 ML Syringe IVPUSH ONE (07:26)
[2019-12-18] MEDS: Sodium Chloride 0.9% 1,000 ML IV SCH (07:29)
[2019-12-18] MEDS: oxyCODONE 5 MG Tab PO ONE (08:33)
[2019-12-18] MEDS ORDERED: Propofol 200 MG/20 ML SDV ONE (08:33)
--- NOTE | 2019-12-18 08:54 | CR ---
Hip Min 1V Rt CLINICAL HISTORY: Dislocation FINDINGS: Patient has a total right hip arthroplasty. There is superior subluxation of the femoral component. The patient has had previous revision with strapping and fixation plate area. There is a bone fragment near the inferior acetabular component. This is also seen on prior hip study but may have migrated laterally. Some of this is positional. IMPRESSION: Dislocation of right hip arthroplasty
--- NOTE | 2019-12-18 09:01 | CR ---
CHEST: Portable 12/18/2019 at 0708 CLINICAL HISTORY:Asthma COMPARISON:October 12, 2018 FINDINGS: Study is limited due to AP lordotic positioning. The heart size, pulmonary vascularity and hilar structures are normal. No infiltrate effusion or pneumothorax is seen. IMPRESSION: Limited study No acute cardiopulmonary process.
--- NOTE | 2019-12-18 09:04 | CR ---
Hip Min 1V Rt CLINICAL HISTORY: Hip dislocation FINDINGS: There is persistent dislocation of the femoral head above the acetabular component of the total hip arthroplasty IMPRESSION: Known right hip prosthesis dislocation without significant change
--- NOTE | 2019-12-18 09:05 | CR ---
Hip Min 1V Rt CLINICAL HISTORY: Post hip dislocation FINDINGS: There has been reduction of the right hip prosthesis dislocation no acute fracture seen IMPRESSION: Reduction of right hip arthroplasty dislocation
== END 2019-12-18 08:59 | disposition home or self-care (01) ==
LOC: JP.ED 06:54
DX: T84.020A Dislocation of internal right hip prosthesis, initial encounter (principal); I50.9 Heart failure, unspecified; J44.9 Chronic obstructive pulmonary disease, unspecified; K21.9 Gastro-esophageal reflux disease without esophagitis; F41.9 Anxiety disorder, unspecified; F32.9 Major depressive disorder, single episode, unspecified; E66.9 Obesity, unspecified; Z68.30 Body mass index [BMI] 30.0-30.9, adult; Z79.01 Long term (current) use of anticoagulants; Z79.899 Other long term (current) drug therapy; Z79.82 Long term (current) use of aspirin; Z91.041 Radiographic dye allergy status; Z91.040 Latex allergy status; Z88.5 Allergy status to narcotic agent; Z88.8 Allergy status to other drugs, medicaments and biological substances; X50.1XXA Overexertion from prolonged static or awkward postures, initial encounter
CPT/HCPCS: 27252; 27266; 36415; 71045; 71045-26; 73501-26-RT; 73501-RT; 80053; 85027; 93005; 93010; 96374; 96375; 99283; 99284-25; A9270-GY; J1170; J2405; J2704; J7030

== ENCOUNTER 2020-01-12 07:44 | Inpatient (IN) | payer MEDICARE, OTHER ==
[2020-01-12] MEDS ORDERED: Lactated Ringers 1,000 ML IV SCH (08:15)
[2020-01-12] MEDS ORDERED: Nozin Nasal Sanitizer NASBOTH SCH ×2 (08:15→21:00)
[2020-01-12] MEDS ORDERED: ceFAZolin 2 GM in Premix Bag 1 BAG IV ONE (09:15)
[2020-01-12] MEDS ORDERED: Midazolam 1 MG/ML 2 ML SDV ONE ×4 (11:37→12:54)
[2020-01-12] MEDS ORDERED: Propofol 200 MG/20 ML SDV ONE ×3 (11:37→13:28)
[2020-01-12] MEDS ORDERED: fentaNYL 100 MCG/2 ML SDV ONE (11:37)
[2020-01-12] MEDS ORDERED: Lactated Ringers 1,000 ML ONE (12:08)
[2020-01-12] MEDS ORDERED: Morphine 2 MG/ML SYRINGE SUBCUT PRN ×2 (13:52→14:51)
[2020-01-12] MEDS ORDERED: Acetaminophen 325 MG Tab PO PRN ×2 (13:52→14:51)
[2020-01-12] MEDS ORDERED: Acetaminophen/HYDROcodone 325-5 MG Tab PO PRN ×2 (13:52→14:51)
[2020-01-12] MEDS ORDERED: Ondansetron 4 MG/2 ML SDV IVPUSH PRN (13:52)
[2020-01-12] MEDS ORDERED: Magnesium Hydroxide 400 MG/5 ML Susp 30 ML Cup PO PRN ×2 (13:52→14:51)
[2020-01-12] MEDS ORDERED: Furosemide 40 MG Tab PO PRN ×2 (14:00→14:51)
[2020-01-12] MEDS ORDERED: Sodium Chloride 0.9% 1,000 ML IV SCH (14:00)
[2020-01-12] MEDS ORDERED: ALPRAZolam 0.25 MG Tab PO PRN ×2 (14:00→14:51)
[2020-01-12] MEDS ORDERED: Albuterol 8 GM Inhaler INH PRN (14:00)
[2020-01-12] MEDS ORDERED: Non-Formulary Medication 1 Each (Esomeprazole Magnesium [Nexium] 20 MG) PO PRN (14:00)
[2020-01-12] MEDS ORDERED: ceFAZolin 1 GM in Sodium Chloride 0.9% 50 ML IV SCH (14:00)
[2020-01-12] MEDS ORDERED: Albuterol/Ipratropium 3.0-0.5 MG/3 ML Neb Soln INH PRN (14:00)
[2020-01-12] MEDS ORDERED: Acetaminophen/oxyCODONE 325-5 MG Tab PO PRN (14:02)
--- NOTE | 2020-01-12 14:29 | CR ---
Pelvis 1V or 2V CLINICAL HISTORY: Postop revision right hip arthroplasty FINDINGS: There is been an additional apparatus applied to the acetabular component of the right hip arthroplasty. Patient has had previous fracture in the subtrochanteric region. Previously seen callus formation is not obvious on the current study. Some of this is technical but some element of nonunion is not excluded. IMPRESSION: Revision of acetabular component right hip arthroplasty Loss of bone density across the fracture plane in the subtrochanteric region may represent nonunion.
[2020-01-12] MEDS ORDERED: Pantoprazole 40 MG Tab.CR PO PRN (15:00)
[2020-01-12] MEDS: Acetaminophen/oxyCODONE 325-5 MG Tab PO PRN ×2 (15:25→19:32)
[2020-01-12] MEDS: Sodium Chloride 0.9% 1,000 ML IV SCH (15:39)
[2020-01-12] MEDS ORDERED: Morphine 2 MG/ML SYRINGE IV PRN (17:11)
[2020-01-12] MEDS: ceFAZolin 1 GM in Premix Bag 1 BAG IV SCH (17:34)
[2020-01-12] MEDS: Ondansetron 4 MG/2 ML SDV IVPUSH PRN (17:45)
[2020-01-12] MEDS ORDERED: CARISOPRODOL PO SCH (21:00)
[2020-01-12] MEDS ORDERED: Non-Formulary Medication 1 Each (Fluticasone Propion/Salmeterol [Advair 250-50 Diskus] 1 P INH SCH (21:00)
[2020-01-12] MEDS ORDERED: Non-Formulary Medication 1 Each (Zolpidem Tartrate [Ambien] 10 MG) PO SCH (21:00)
[2020-01-12] MEDS: Ketorolac 30 MG/ML SDV IVPUSH PRN (21:04)
[2020-01-12] MEDS: Nozin Nasal Sanitizer NASBOTH SCH (21:45)
[2020-01-12] MEDS: Zolpidem 5 MG Tab PO SCH (21:49)
[2020-01-12] MEDS: Cyclobenzaprine 10 MG Tab PO SCH (21:49)
[2020-01-12] MEDS: Fluticasone-Salmeterol 113-14 MCG Powder Inhalant INH SCH (21:51)
[2020-01-13] MEDS: ceFAZolin 1 GM in Premix Bag 1 BAG IV SCH ×2 (02:39→10:24)
[2020-01-13] MEDS: Acetaminophen/oxyCODONE 325-5 MG Tab PO PRN ×5 (02:43→19:22)
[2020-01-13] MEDS: Fluticasone-Salmeterol 113-14 MCG Powder Inhalant INH SCH ×2 (07:25→20:29)
[2020-01-13] MEDS: Sodium Chloride 0.9% 1,000 ML IV SCH (08:21)
[2020-01-13] MEDS: Aspirin 81 MG Tab.EC PO SCH (08:23)
[2020-01-13] MEDS: Docusate Sodium 100 MG Cap PO SCH (08:23)
[2020-01-13] MEDS: predniSONE 5 MG Tab PO SCH (08:24)
[2020-01-13] MEDS: Metoprolol Succinate 25 MG Tab.ER PO SCH (08:25)
[2020-01-13] MEDS: FLUoxetine 20 MG Cap PO SCH (08:25)
[2020-01-13] MEDS: Nozin Nasal Sanitizer NASBOTH SCH ×2 (08:26→20:28)
[2020-01-13] MEDS ORDERED: Aspirin 81 MG Tab.EC PO SCH (09:00)
[2020-01-13] MEDS ORDERED: FLUoxetine 20 MG Cap PO SCH (09:00)
[2020-01-13] MEDS ORDERED: predniSONE 5 MG Tab PO SCH (09:00)
[2020-01-13] MEDS ORDERED: Metoprolol Succinate 25 MG Tab.ER PO SCH (09:00)
[2020-01-13] MEDS ORDERED: Docusate Sodium 100 MG Cap PO SCH (09:00)
[2020-01-13] MEDS: Ketorolac 30 MG/ML SDV IVPUSH PRN ×3 (11:01→23:59)
[2020-01-13] MEDS: Zolpidem 5 MG Tab PO SCH (20:28)
[2020-01-13] MEDS: Cyclobenzaprine 10 MG Tab PO SCH (20:29)
[2020-01-13] MEDS: Ondansetron 4 MG/2 ML SDV IVPUSH PRN (22:52)
[2020-01-14] MEDS: Fluticasone-Salmeterol 113-14 MCG Powder Inhalant INH SCH (07:30)
[2020-01-14] MEDS: Docusate Sodium 100 MG Cap PO SCH (08:41)
[2020-01-14] MEDS: Nozin Nasal Sanitizer NASBOTH SCH (08:41)
[2020-01-14] MEDS: predniSONE 5 MG Tab PO SCH (08:41)
[2020-01-14] MEDS: Aspirin 81 MG Tab.EC PO SCH (08:42)
[2020-01-14] MEDS: FLUoxetine 20 MG Cap PO SCH (08:42)
[2020-01-14] MEDS: Metoprolol Succinate 25 MG Tab.ER PO SCH (08:42)
[2020-01-14] MEDS: Acetaminophen/oxyCODONE 325-5 MG Tab PO PRN (08:43)
[2020-01-14] MEDS: Ketorolac 30 MG/ML SDV IVPUSH PRN (08:43)
--- NOTE | 2020-01-23 13:51 | OR ---
DATE OF PROCEDURE: 01/12/2020 SURGEON: Preston Telles MD PREOPERATIVE DIAGNOSIS: Recurrent dislocation, right total hip. POSTOPERATIVE DIAGNOSIS: Recurrent dislocation, right total hip. PROCEDURE PERFORMED: Conversion of right acetabular liner to a constrained liner, a Longevity constrained size 2 with a 28 +0 femoral head. ANESTHESIA: Spinal. 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 Also developed a trochanteric nonunion and had fixation with a claw plate. She has had difficulty with recurrent posterior dislocations. She now presents for conversion of the acetabulum to a constrained cup. Risks, benefits, and potential complications of the procedure including long-term ramifications of the constrained prosthesis were discussed. DESCRIPTION OF PROCEDURE: After adequate anesthesia was obtained, the patient was placed in a lateral decubitus position and secured with the hip positioner. Right hip and leg were then prepped and draped in a sterile fashion. A previous incision was utilized, carried down through the subcutaneous tissues, and hemostasis obtained with electrocautery. Tensor fascia was divided along the previous suture line. Some mild adhesions present were lysed. Trochanteric fixation was solid with no evidence of complication of the hardware. Moderate seroma was present secondary to the recurrent dislocations. Minimal capsule was present posteriorly. The rim of the acetabular cup was exposed around its entire periphery. Drill hole was made into the polyethylene, and an acetabular screw was then used to lever the polyethylene out of the cup. The hip was trialed with 0 neck length, which provided nondenominational of length. The trial was removed. The hip was irrigated. The Longevity constrained liner was then secured into the acetabulum. The +0 28 mm head was placed on the stem, and the head was reduced into the constrained liner. The locking ring was then pounded into position, securing it in place. Following this, the hip was taken through range of motion. She had full flexion beyond 90 degrees, and multiple attempts were made to dislocate the hip including traction, flexion, adduction, and internal rotation. The hip demonstrated very good stability. It was irrigated once again and then closed using #2 Ethibond in the fascia layer, 2-0 Vicryl, and a running 3-0 Monocryl. Steri- Strips were applied. The patient tolerated the procedure very well. There were no complications. Taken from the operating room in a stable condition. Preston Telles MD /[id number] MTDD
== END 2020-01-14 13:00 | disposition home or self-care (01) | DRG 482 ==
LOC: JP.SDSSCHI 07:44 → JP.SDS 07:44 → EDSTATUS 08:30 → JP.MS 13:52
PROVIDERS: ADMIT Specialist; ATTEND Specialist
PROC: 0SW909Z Revision of Liner in Right Hip Joint, Open Approach (ICD-10-PCS; principal; 2020-01-12)
DX: S73.004A Unspecified dislocation of right hip, initial encounter (principal); G47.33 Obstructive sleep apnea (adult) (pediatric); J44.9 Chronic obstructive pulmonary disease, unspecified; K21.9 Gastro-esophageal reflux disease without esophagitis; Z86.711 Personal history of pulmonary embolism; X58.XXXA Exposure to other specified factors, initial encounter
CPT/HCPCS: 36415; 72170; 72170-26; 80053; 85027; 94640; 97110-GP; 97116-GP; 97162-GP; 97530-GP; A9270-GY; C1713; C1776; J0690; J1885; J2250; J2270; J2405; J2704; J3010; J7030; J7120; J7512

== ENCOUNTER 2022-01-09 07:26 | Inpatient (IN) | payer MEDICARE, OTHER, SELFPAY ==
[2022-01-09] MEDS ORDERED: Sodium Chloride 0.9% 10 ML Syringe FLUSH PRN (07:33)
[2022-01-09] MEDS ORDERED: fentaNYL 100 MCG/2 ML SDV IVPUSH ONE (07:33)
[2022-01-09] MEDS ORDERED: Ondansetron 4 MG/2 ML SDV IVPUSH ONE (07:47)
[2022-01-09] MEDS ORDERED: HYDROmorphone 1 MG/ML Syringe IVPUSH ONE ×2 (08:05→09:27)
[2022-01-09] MEDS ORDERED: Ketamine 500 MG/5 ML MDV IV ONE (09:28)
[2022-01-09] MEDS ORDERED: Albuterol/Ipratropium 3.0-0.5 MG/3 ML Neb Soln NEB ONE (09:36)
[2022-01-09] MEDS ORDERED: Acetaminophen 325 MG Tab PO PRN (09:46)
[2022-01-09] MEDS ORDERED: Morphine 2 MG/ML SYRINGE IV PRN (09:46)
[2022-01-09] MEDS ORDERED: ALPRAZolam 0.25 MG Tab PO PRN (09:50)
[2022-01-09] MEDS ORDERED: Benzonatate 100 MG Cap PO PRN (09:50)
[2022-01-09] MEDS ORDERED: Albuterol 8 GM Inhaler INH PRN (09:50)
[2022-01-09] MEDS ORDERED: Albuterol/Ipratropium 3.0-0.5 MG/3 ML Neb Soln INH PRN (11:37)
[2022-01-09] MEDS ORDERED: Furosemide 40 MG Tab PO PRN (11:37)
[2022-01-09] MEDS: oxyCODONE 5 MG Tab PO PRN ×3 (12:20→23:48)
[2022-01-09] MEDS: Ondansetron 4 MG Tab.DIS PO PRN (12:20)
[2022-01-09] MEDS: HYDROmorphone 0.5 MG/0.5 ML Syringe IVPUSH PRN ×3 (13:48→21:40)
[2022-01-09] MEDS: Albuterol/Ipratropium 3.0-0.5 MG/3 ML Neb Soln INH PRN ×2 (16:01→20:11)
[2022-01-09] MEDS: Ondansetron 4 MG/2 ML SDV IVPUSH PRN ×2 (17:25→23:49)
[2022-01-09] MEDS: Ketorolac 30 MG/ML SDV IVPUSH PRN (18:40)
[2022-01-09] MEDS: Docusate Sodium 100 MG Cap PO SCH (21:26)
[2022-01-09] MEDS: Cyclobenzaprine 10 MG Tab PO SCH ×2 (21:27→22:31)
[2022-01-09] MEDS: Nozin Nasal Sanitizer NASBOTH SCH (21:29)
[2022-01-09] MEDS: Zolpidem 5 MG Tab PO SCH (21:36)
[2022-01-10] MEDS: oxyCODONE 5 MG Tab PO PRN ×4 (03:51→19:38)
[2022-01-10] MEDS: Ketorolac 30 MG/ML SDV IVPUSH PRN ×2 (03:53→14:36)
[2022-01-10] MEDS: Albuterol/Ipratropium 3.0-0.5 MG/3 ML Neb Soln INH PRN ×3 (06:09→21:10)
[2022-01-10] MEDS ORDERED: Bupivacaine 0.5% 30 ML SDV ONE (06:34)
[2022-01-10] MEDS ORDERED: Propofol 200 MG/20 ML SDV ONE (07:09)
[2022-01-10] MEDS ORDERED: fentaNYL 100 MCG/2 ML SDV ONE (07:10)
[2022-01-10] MEDS ORDERED: Midazolam 1 MG/ML 2 ML SDV ONE ×2 (07:10→08:03)
[2022-01-10] MEDS ORDERED: Phenylephrine 1% 10 MG/ML SDV ONE (08:11)
[2022-01-10] MEDS ORDERED: Hydrocortisone Sodium Succinate 100 MG/2 ML SDV ONE (08:52)
[2022-01-10] MEDS ORDERED: Lactated Ringers 1,000 ML ONE (09:00)
[2022-01-10] MEDS: FLUoxetine 20 MG Cap PO SCH (10:52)
[2022-01-10] MEDS: Nozin Nasal Sanitizer NASBOTH SCH ×2 (10:52→21:01)
[2022-01-10] MEDS: Docusate Sodium 100 MG Cap PO SCH ×2 (10:52→21:01)
[2022-01-10] MEDS: Acetaminophen 325 MG Tab PO SCH ×4 (10:53→21:00)
[2022-01-10] MEDS ORDERED: Sodium Chloride 0.9% 500 ML IV ONE ×2 (14:49→20:23)
[2022-01-10] MEDS: Sodium Chloride 0.9% 1,000 ML IV SCH ×2 (14:58→19:46)
[2022-01-10] MEDS: Ondansetron 4 MG/2 ML SDV IVPUSH PRN (19:38)
[2022-01-10] MEDS: Cyclobenzaprine 10 MG Tab PO SCH (21:00)
[2022-01-10] MEDS: Zolpidem 5 MG Tab PO SCH (21:01)
[2022-01-11] MEDS: Acetaminophen 325 MG Tab PO SCH ×6 (02:49→21:46)
[2022-01-11] MEDS: oxyCODONE 5 MG Tab PO PRN ×5 (02:52→21:50)
[2022-01-11] MEDS: Albuterol/Ipratropium 3.0-0.5 MG/3 ML Neb Soln INH PRN ×4 (02:59→19:35)
[2022-01-11] MEDS: Sodium Chloride 0.9% 1,000 ML IV SCH (06:32)
[2022-01-11] MEDS: Docusate Sodium 100 MG Cap PO SCH ×2 (08:32→21:46)
[2022-01-11] MEDS: Enoxaparin 40 MG/0.4 ML Syringe SUBCUT SCH (08:32)
[2022-01-11] MEDS: FLUoxetine 20 MG Cap PO SCH (08:32)
[2022-01-11] MEDS: Nozin Nasal Sanitizer NASBOTH SCH ×2 (08:32→21:45)
[2022-01-11] MEDS: Ondansetron 4 MG Tab.DIS PO PRN (18:35)
[2022-01-11] MEDS: Zolpidem 5 MG Tab PO SCH (21:45)
[2022-01-11] MEDS: Cyclobenzaprine 10 MG Tab PO SCH (21:45)
[2022-01-12] MEDS: Albuterol/Ipratropium 3.0-0.5 MG/3 ML Neb Soln INH PRN ×2 (01:53→07:13)
[2022-01-12] MEDS: Acetaminophen 325 MG Tab PO SCH ×3 (01:54→09:21)
[2022-01-12] MEDS: oxyCODONE 5 MG Tab PO PRN ×2 (07:44→12:09)
[2022-01-12] MEDS ORDERED: Metoprolol Succinate 25 MG Tab.ER PO SCH (09:00)
[2022-01-12] MEDS ORDERED: predniSONE 5 MG Tab PO SCH (09:00)
[2022-01-12] MEDS: Docusate Sodium 100 MG Cap PO SCH (09:19)
[2022-01-12] MEDS: Nozin Nasal Sanitizer NASBOTH SCH (09:19)
[2022-01-12] MEDS: Enoxaparin 40 MG/0.4 ML Syringe SUBCUT SCH (09:19)
[2022-01-12] MEDS: FLUoxetine 20 MG Cap PO SCH (09:20)
== END 2022-01-12 14:20 | disposition home or self-care (01) | DRG 467 ==
LOC: JP.ED 07:26 → JP.MS 09:47
PROVIDERS: ADMIT Specialist; ATTEND Specialist
PROC: 0SP909Z Removal of Liner from Right Hip Joint, Open Approach (ICD-10-PCS; principal; 2022-01-10)
PROC: 0SUA09Z Supplement Right Hip Joint, Acetabular Surface with Liner, Open Approach (ICD-10-PCS; 2022-01-10)
DX: T84.020A Dislocation of internal right hip prosthesis, initial encounter (principal); D84.9 Immunodeficiency, unspecified; Z96.641 Presence of right artificial hip joint; Z88.8 Allergy status to other drugs, medicaments and biological substances; Z91.041 Radiographic dye allergy status; Z91.040 Latex allergy status; D64.9 Anemia, unspecified; I50.9 Heart failure, unspecified; J44.9 Chronic obstructive pulmonary disease, unspecified; Z86.711 Personal history of pulmonary embolism; Z79.01 Long term (current) use of anticoagulants; Z20.822 Contact with and (suspected) exposure to COVID-19; I95.9 Hypotension, unspecified; R00.0 Tachycardia, unspecified; E86.1 Hypovolemia; Z79.82 Long term (current) use of aspirin; Z79.899 Other long term (current) drug therapy; Z79.52 Long term (current) use of systemic steroids; G47.30 Sleep apnea, unspecified; G89.29 Other chronic pain; M54.59 Other low back pain; M54.16 Radiculopathy, lumbar region; I11.0 Hypertensive heart disease with heart failure; E03.9 Hypothyroidism, unspecified; M19.90 Unspecified osteoarthritis, unspecified site; Z79.891 Long term (current) use of opiate analgesic; Z88.5 Allergy status to narcotic agent; H54.7 Unspecified visual loss; Z87.01 Personal history of pneumonia (recurrent); K44.9 Diaphragmatic hernia without obstruction or gangrene; F41.9 Anxiety disorder, unspecified; F32.A Depression, unspecified; E66.9 Obesity, unspecified; G43.909 Migraine, unspecified, not intractable, without status migrainosus; Z90.89 Acquired absence of other organs; Z90.710 Acquired absence of both cervix and uterus; Z90.49 Acquired absence of other specified parts of digestive tract; Z87.891 Personal history of nicotine dependence; Z68.30 Body mass index [BMI] 30.0-30.9, adult
CPT/HCPCS: 36415; 73501 ×2; 80048; 85025; 94640; 96374; 96375; 99284; J1170 ×2; J2405; J3010; J3490; 51702; 72170; 72170-26; 85027; 97110-GP; 97162-GP; 97530-GP; 97535-GP; A9270-GY; C1713; C1776; J0690; J1650; J1720; J1885; J2250; J2370; J2704; J7030; J7040; J7120; J7512; J7620; Q0162; U0002

== ENCOUNTER 2023-07-19 06:54 | Day surgery (SDC) | payer MEDICARE, OTHER ==
[2023-07-19] MEDS ORDERED: Sodium Chloride 0.9% 10 ML Syringe FLUSH PRN (07:30)
== END 2023-07-19 08:46 | disposition home or self-care (01) ==
LOC: JP.SDS 06:54
PROVIDERS: ATTEND Ophthalmology
DX: H26.9 Unspecified cataract (principal); J45.909 Unspecified asthma, uncomplicated; K21.9 Gastro-esophageal reflux disease without esophagitis
CPT/HCPCS: 66984; J3490; V2632

== ENCOUNTER 2023-08-02 06:26 | Day surgery (SDC) | payer MEDICARE, OTHER ==
[2023-08-02] MEDS ORDERED: fentaNYL 100 MCG/2 ML SDV ONE (07:46)
[2023-08-02] MEDS: Sodium Chloride 0.9% 10 ML Syringe FLUSH PRN (08:00)
== END 2023-08-02 08:35 | disposition home or self-care (01) ==
LOC: JP.SDS 06:26
PROVIDERS: ATTEND Ophthalmology
DX: H26.9 Unspecified cataract (principal); I10 Essential (primary) hypertension; J45.909 Unspecified asthma, uncomplicated; E66.9 Obesity, unspecified; Z68.30 Body mass index [BMI] 30.0-30.9, adult; Z91.041 Radiographic dye allergy status
CPT/HCPCS: J3010; J3490; V2632